=== PATIENT | female | born 1985 | race Hispanic/Latino ===

== ENCOUNTER 2018-04-16 19:16 | Emergency (ER) | payer OTHER, SELFPAY ==
[2018-04-16 21:39] LABS: Absolute Monocytes 0.6 K/uL (0.1-1.3); Absolute Neutrophil 4.4 K/uL (1.8-8.0); Basophils % 0.4 % (0-1.3); Eosinophils % 1.6 % (0-4.4); Hematocrit 37.6 % (36.0-45.0); Lymphocytes % 28.7 % (15.3-44.8); MCH 31.9 pg (27.0-35.0); MCV 92.6 fL (80-100); MPV 9.3 fL (7.6-11.3); Monocytes % 7.9 % (3.3-12.3); RBC Red Blood Cell Count 4.06 M/uL (3.86-4.86)
[2018-04-16 21:42] LABS: Urine Blood 2+ (NEG); Urine Glucose NEGATIVE (NEG); Urine Protein NEGATIVE (NEG); Urine Specific Gravity >1.030 (1.005-1.030)
[2018-04-16 22:44] LABS: BUN Blood Urea Nitrogen 12 mg/dL (7-18); Bicarbonate 26 mmol/L (21-32); Glucose Level 100 mg/dL (74-106); Potassium 3.7 mmol/L (3.5-5.1); Sodium Level 140 mmol/L (136-145)
[2018-04-16 23:03] LABS: HCG, Quantitative 5238 mIU/mL (1-3)
--- NOTE | 2018-04-16 23:19 | RAD REPORT ---
EXAM DESCRIPTION: US - Transvaginal OB - 04/16/2018 10:57 pm CLINICAL HISTORY: VAGINAL BLEEDING COMPARISON: <Comparisons> FINDINGS: The uterus is normal in size and shape. The uterus measures 11.2 x 10.2 x 6.4 cm. No definitive gestational sac or IUP findings are present within the endometrium. A tiny cystic struc ture is seen adjacent to the endometrial stripe but not clearly within it. Both ovaries are normal in size, shape and echotexture with normal Doppler blood flow identified. No pelvic ascites. IMPRESSION: No findings to confirm IUP are seen.In the setting of an elevated HCG level, the finding s would indicate of unknown location. Serial HCG levels and followup pelvic sonography in 7 -10 days would be recommended.
--- NOTE | 2018-04-16 23:30 | EDPHYS ---
Physician Documentation [facility] Name: Qing Alejandro Age: 32 yrs Sex: Female : 1985 Arrival Date: 04/16/2018 Time: 19:24 Bed 15 Private MD: ED Physician Cresencio Mendez HPI: 04/16 20:55 This 32 yrs old Female presents to ER via Ambulatory with complaints of cp Vaginal Bleeding, + Preg <12wks, Abdominal Cramping. 20:55 The patient presents to the emergency department with vaginal bleeding, with clots. cp 20:55 The estimated gestational age is 12 weeks. course: care: at a clinic, Leakage of Fluid: none appreciated, Ultrasound: the patient had an ultrasound. 20:55 Previous pregnancies: in previous pregnancies patient has had vaginal delivery. Patient cp reports she is approximately 12 weeks and became concerned today after passing of large clot. Patient reports she has appt with primary OB at [facility] clinic yesterday in which US did not show IUP. 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 - Social history:: Smoking status: Patient/guardian denies using tobacco. - Ebola Screening: : No symptoms or risks identified at this time. ROS: 21:00 Constitutional: Negative for body aches, chills, fever, poor PO intake. cp 21:00 Eyes: Negative for injury, pain, redness, and discharge. cp 21:00 Cardiovascular: Negative for chest pain, palpitations. cp 21:00 Respiratory: Negative for cough, shortness of breath, wheezing. cp 21:00 Abdomen/GI: Negative for abdominal pain, nausea, vomiting, and diarrhea. 21:00 : Positive for vaginal bleeding, Negative for urinary symptoms. 21:00 All other systems are negative. Exam: 21:08 Constitutional: The patient appears in no acute distress, alert, awake, comfortable, cp non-toxic, well developed, well nourished. 21:08 Head/Face: Normocephalic, atraumatic. cp 21:08 Eyes: Periorbital structures: appear normal, Conjunctiva: normal, no exudate, no injection, Sclera: no appreciated abnormality, Lids and lashes: appear normal, bilaterally. 21:08 ENT: External ear(s): are unremarkable, Nose: is normal, Mouth: Lips: moist, Oral mucosa: moist, Posterior pharynx: is normal, airway is patent. 21:08 Neck: ROM/movement: is normal, is supple, without pain, no range of motions limitations, no nuchal rigidity. 21:08 Chest/axilla: Inspection: normal, Palpation: is normal, no crepitus, no tenderness. 21:08 Cardiovascular: Rate: normal, Rhythm: regular. 21:08 Respiratory: the patient does not display signs of respiratory distress, Respirations: normal, no use of accessory muscles, no retractions, no splinting, no tachypnea, Breath sounds: are clear throughout. 21:08 Abdomen/GI: Inspection: abdomen appears normal, Bowel sounds: active, all quadrants, Palpation: soft, in all quadrants, nontender, in all quadrants, rebound tenderness, is not appreciated, voluntary guarding, is not appreciated, involuntary guarding, is not appreciated. 21:08 Back: pain, is absent, ROM is normal. 21:08 Skin: cellulitis, is not appreciated, no rash present. 21:08 Neuro: Orientation: to person, place \T\ time. Mentation: is normal, Cerebellar function: is grossly normal, Motor: moves all fours, strength is normal, Sensation: is normal. Vital Signs: 19:29 BP 112 / 71; Pulse 74; Resp 14; Temp 97.4(TE); Pulse Ox 99% on R/A; Weight 60.78 kg lk1 (R); Height 5 ft. 3 in. (160.02 cm) (R); Pain 0/10; 22:32 BP 105 / 72; Pulse 90; Resp 18; Pulse Ox 98% on R/A; tl2 04/17 00:12 BP 110 / 65; Pulse 81; Resp 18; Pulse Ox 100% on R/A; tl2 04/16 19:29 Body Mass Index 23.74 (60.78 kg, 160.02 cm) lk1 MDM: 04/16 20:49 Patient medically screened. cp 21:00 Differential diagnosis: STD, ectopic . cp 23:26 ED course: VSS. Patient reports having US this past Friday that showed IUP with FHTs cp wnl. At f/u appt yesterday, repeat US did not show IUP and no FHTs noted. 23:27 Data reviewed: vital signs, nurses notes, lab test result(s), radiologic studies, cp ultrasound, and as a result, I will discharge patient. 04/16 20:55 Order name: Quantitative Hcg; Complete Time: 23:11 04/16 23:11 Interpretation: HCGQ 5238; Reviewed. 04/16 20:55 Order name: Abo/rh Typing; Complete Time: 22:26 04/16 20:55 Order name: Basic Metabolic Panel; Complete Time: 23:11 04/16 20:55 Order name: CBC with Diff; Complete Time: 22:26 04/16 21:40 Order name: Urine Dipstick--Ancillary (enter results); Complete Time: 22:26 [facility] 04/16 21:40 Order name: Urine --Ancillary (enter results); Complete Time: 22:26 [facility] 04/16 20:55 Order name: Urine Test (obtain specimen); Complete Time: 21:58 04/16 20:55 Order name: IV Saline Lock; Complete Time: 21:58 04/16 20:55 Order name: Labs collected and sent; Complete Time: 21:31 04/16 20:55 Order name: NPO; Complete Time: 21:31 04/16 20:55 Order name: Urine Dipstick-Ancillary (obtain specimen); Complete Time: 21:31 04/16 22:27 Order name: US Transvaginal Ob; Complete Time: 23:20 04/16 23:20 Interpretation: Report reviewed. cp Administered Medications: No medications were administered Disposition: 04/17 08:07 Co-signature as Attending Physician, Cresencio Mendez MD I agree with the assessment and wa plan of care. Disposition: 04/16/18 23:29 Discharged to Home. Impression: Threatened . - Condition is Stable. - Discharge Instructions: Medicines During , Threatened Miscarriage, Pelvic Rest. - Prescriptions for Vitamin 27- 0.8 mg Oral Tablet - take 1 tablet by ORAL route once daily; 60 tablet. - Medication Reconciliation Form, Thank You Letter, Antibiotic Education, Prescription Opioid Use form. - Follow up: Private Physician; When: call office for appt and to repeat beta-hcg level in 48 hours; Reason: Recheck today's complaints, Repeat Beta-HCG (48 Hours). - Problem is new. - Symptoms have improved. Signatures: Dispatcher [employer] EDMS Raghav Jj PA PA cp Sharon Barcenas RN RN lk1 Norah Pires RN RN tl2 Cresencio Mendez MD MD id Corrections: (The following items were deleted from the chart) 00:14 04/16 23:29 04/16/2018 23:29 Discharged to Home. Impression: Threatened . tl2 Condition is Stable. Forms are Medication Reconciliation Form, Thank You Letter, Antibiotic Education, Prescription Opioid Use. Follow up: Private Physician; When: call office for appt and to repeat beta-hcg level in 48 hours; Reason: Recheck today's complaints, Repeat Beta-HCG (48 Hours). Problem is new. Symptoms have improved. cp
--- NOTE | 2018-04-16 23:30 | ER ---
Nurse's Notes [facility] Name: Qing Alejandro Age: 32 yrs Sex: Female : 1985 Arrival Date: 04/16/2018 Time: 19:24 Bed 15 Private MD: Diagnosis: Threatened Presentation: 04/16 19:25 Presenting complaint: Patient states: "Today at work, I had a big blood clot come out. lk1 I am scheduled for an ultrasound at 8am in the morning, but the cancelled it. I miscarried 2 years ago. I had an ultrasound yesterday and they couldn't see a baby, but last week they could.". Transition of care: patient was not received from another setting of care. Onset of symptoms was April 16, 2018. Risk Assessment: Do you want to hurt yourself or someone else? Patient reports no desire to harm self or others. Initial Sepsis Screen: Does the patient meet any 2 criteria? No. Patient's initial sepsis screen is negative. Does the patient have a suspected source of infection? No. Patient's initial sepsis screen is negative. Care prior to arrival: None. 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 - Social history:: Smoking status: Patient/guardian denies using tobacco. - Ebola Screening: : No symptoms or risks identified at this time. Screenin/29 00:12 Abuse screen: Denies threats or abuse. Nutritional screening: No deficits noted. tl2 Tuberculosis screening: No symptoms or risk factors identified. Fall Risk None identified. Assessment: 04/16 20:45 General: Appears in no apparent distress. comfortable, Behavior is calm, cooperative, tl2 appropriate for age. Pain: Denies pain. Neuro: Level of Consciousness is awake, alert, obeys commands, Oriented to person, place, time, situation. Cardiovascular: Denies chest pain. Respiratory: Airway is patent Respiratory effort is even, unlabored, Respiratory pattern is regular, symmetrical. GI: No signs and/or symptoms were reported involving the gastrointestinal system. : Reports vaginal bleeding that is bright red, with clots. Derm: Skin is pink, warm \\T\\ dry. 23:00 Reassessment: Patient appears in no apparent distress at this time. Patient and/or tl2 family updated on plan of care and expected duration. Pain level reassessed. Patient is alert, oriented x 3, equal unlabored respirations, skin warm/dry/pink. 04/17 00:12 Reassessment: Patient appears in no apparent distress at this time. Patient and/or tl2 family updated on plan of care and expected duration. Pain level reassessed. Patient is alert, oriented x 3, equal unlabored respirations, skin warm/dry/pink. Pt verbalized understanding of discharge instructions, need for follow up and prescription usage. Vital Signs: 04/16 19:29 BP 112 / 71; Pulse 74; Resp 14; Temp 97.4(TE); Pulse Ox 99% on R/A; Weight 60.78 kg lk1 (R); Height 5 ft. 3 in. (160.02 cm) (R); Pain 0/10; 22:32 BP 105 / 72; Pulse 90; Resp 18; Pulse Ox 98% on R/A; tl2 04/17 00:12 BP 110 / 65; Pulse 81; Resp 18; Pulse Ox 100% on R/A; tl2 04/16 19:29 Body Mass Index 23.74 (60.78 kg, 160.02 cm) lk1 ED Course: 04/16 19:24 Patient arrived in ED. am2 19:28 Triage completed. lk1 19:31 Arm band placed on right wrist. lk1 20:31 Raghav Jj PA is PHCP. cp 20:31 Cresencio Mendez MD is Attending Physician. cp 21:00 Patient has correct armband on for positive identification. Bed in low position. Call tl2 light in reach. Side rails up X 1. 21:00 No provider procedures requiring assistance completed. tl2 21:33 Initial lab(s) drawn, by ga, sent to lab. Urine collected: clean catch specimen. bb 21:59 Inserted saline lock: 22 gauge in right antecubital area, using aseptic technique. tl2 Blood collected. 22:32 Norah Pires, RN is Primary Nurse. tl2 22:39 Patient taken to ultrasound. via wheelchair. lc3 22:57 US Transvaginal Ob In Process Unspecified. EDMS 22:57 Ultrasound completed. Patient tolerated well. Patient moved back from ultrasound. lc3 04/17 00:13 IV discontinued, intact, bleeding controlled, No redness/swelling at site. Pressure tl2 dressing applied. Administered Medications: No medications were administered Outcome: 04/16 23:29 Discharge ordered by MD. cp 04/17 00:13 Discharged to home ambulatory. tl2 Condition: stable Discharge instructions given to patient, Instructed on discharge instructions, follow up and referral plans. medication usage, Demonstrated understanding of instructions, follow-up care, medications, Prescriptions given X 1. 00:14 Patient left the ED. tl2 Signatures: Dispatcher [employer] EDMS Maida Ferrer, RN RN bb Raghav Jj, PA PA cp Deedee Aceves lc3 Sharon Barcenas RN RN lk1 Norah Pires, RN RN tl2 Elisabeth Stroud
== END 2018-04-17 00:14 | disposition home or self-care (01) ==
LOC: ER 19:16
DX: O20.0 Threatened abortion (principal); Z3A.12 12 weeks gestation of pregnancy
CPT/HCPCS: 36415; 76817; 80048; 81003; 81025; 84702; 85025; 86900; 86901; 99284

== ENCOUNTER 2019-09-08 12:26 | Emergency (ER) | payer SELFPAY ==
--- OUTSIDE RECORDS SUMMARY | 2019-09-08 12:28 | XMS REPORT ---
:1985 [facility] Address [address] [place] [address] Dr. Hou [address] [place] [id number] Care Team Providers Name Role Phone Unavailable Unavailable Unavailable Problems This patient has no known problems. Allergies, Adverse Reactions, Alerts This patient has no known allergies or adverse reactions. Medications This patient has no known medications.
--- OUTSIDE RECORDS SUMMARY | 2019-09-08 12:28 | XMS REPORT | Summary of Care ---
:1985 Author Organization [facility] - Health Address [address] [place] [address] Care Team Providers Name Role Phone Syst, Referring/Pcp Prov Not In Insurance Hmo Unavailable [facility] Provider Encounter Details Date Type Department Care Team Description 06/14/2019 Orders Only [facility] Doctor Unassigned, No [address] [facility] [place] [address] [place] [id number] Allergies Active Allergy Reactions Severity Noted Date Comments Adhesive Rash 03/09/2014 Pt allergic to the adhesive on the ortho evra patches. documented as of this encounter (statuses as of 06/14/2019) Medications Medication Sig Dispensed Refills Start Date End Date Status metroNIDAZOLE 500 mg Take 1 tablet by 14 tablet 0 12/02/2018 Active tabletIndications: BV mouth 2 (two) (bacterial vaginosis) times daily. documented as of this encounter (statuses as of 06/14/2019) Active Problems Problem Noted Date Cervical high risk human papillomavirus (HPV) DNA test positive 08/27/2018 Overview: HPV+, Patient informed to RTC in 1 year for repeat pap smear and cotesting. Vaginal itching 08/25/2018 Vaginal discharge 08/25/2018 Encounter for contraceptive management, unspecified type 08/12/2017 Screening examination for STD (sexually transmitted disease) 08/12/2017 Well woman exam 02/05/2016 Depression, unspecified depression type 01/26/2015 documented as of this encounter (statuses as of 06/14/2019) Resolved Problems Problem Noted Date Resolved Date Miscarriage 04/27/2018 04/27/2018 Supervision of high risk , antepartum 03/13/2018 08/25/2018 History of delivery, currently 03/13/2018 08/25/2018 Vaginal bleeding before 22 weeks gestation 03/13/2018 08/25/2018 History of spontaneous , currently 03/13/2018 08/25/2018 Screening for STD (sexually transmitted disease) 08/12/2017 03/13/2018 BMI 22.0-22.9, adult 08/12/2017 03/13/2018 Spontaneous complicated by delayed or excessive 10/11/20162016 hemorrhage Anemia 10/11/2016 08/12/2017 Retained products of conception, early 10/11/2016 08/12/2017 Supervision of high risk , antepartum 09/16/2016 08/12/2017 Multiparity 09/16/2016 08/12/2017 History of miscarriage, currently 09/16/2016 08/12/2017 History of depression 09/16/2016 03/13/2018 Vaginal bleeding in patient at less than 20 weeks 09/16/20162016 gestation Previous delivery affecting , antepartum 08/26/20162016 Overview: Low-transverse uterine incision due to FTP. 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 Utility Nexplanon in place 01/26/2015 02/05/2016 Mood swings 01/26/2015 02/05/2016 Need for Tdap vaccination 12/10/2013 01/26/2015 Missed menses 10/05/2013 12/10/2013 documented as of this encounter (statuses as of 06/14/2019) Immunizations Name Administration Dates Next Due Tdap 02/07/2015 (Deferred: Patient Refused - pt thinks she recieved the vaccine at the ER 2013, will bring proof) documented as of this encounter Social History Tobacco Use Types Packs/Day Years Used Date Never Smoker Smokeless Tobacco: Never Used Alcohol Use Drinks/Week oz/Week Comments Yes 0 Standard drinks or equivalent 0.0 socially prior to Sex Assigned at Date Recorded Not on file Job Start Date Occupation Industry Not on file Not on file Not on file Travel History Travel Start Travel End No recent travel history available. documented as of this encounter Last Filed Vital Signs Not on filedocumented in this encounter Plan of Treatment Date Type Specialty Care Team Description 06/14/2019 Initial Visit OB Satellites Damaris Hart, LISA [address] [place] [address] Health Maintenance Due Date Last Done Comments DTaP,Tdap,and Td Vaccines 2006 (1 - Tdap) INFLUENZA VACCINE (#1) 2019 PAP SMEAR 08/25/2021 08/25/2018, 08/12/2017, 12/10/2013, Additional history exists PNEUMOCOCCAL 0-64 YEARS Aged Out No longer eligible COMBINED SERIES based on patient's age to complete this topic documented as of this encounter Procedures Procedure Name Priority Date/Time Associated Diagnosis Comments ASSIGNMENT OF BENEFITS Routine 06/14/2019 8:02 AM CDT documented in this encounter Results Not on filedocumented in this encounter Insurance Payer Benefit Plan / Subscriber ID Effective Dates Phone Address Type Group [facility] [employer] [employer] [id number] 2018-Marika SAMUEL Agency [employer] [phone] [place] [id number] [place] [address] documented as of this encounter Advance Directives Name Relationship Healthcare Agent Communication Relationship Giuliano Mcgee Relative Primary healthcare agent Caitlin Alejandro Sibling First alternate healthcare [phone] agent (Mobile)
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
--- OUTSIDE RECORDS SUMMARY | 2019-09-08 12:29 | XMS REPORT | Summary of Care ---
:1985 Author Organization [facility] Address [address] [place] [address] Care Team Providers Name Role Phone Syst, Referring/Pcp Prov Not In Insurance Hmo Unavailable Damaris Hart Primary Care Provider Reason for Referral (Routine) Status Reason Specialty Diagnoses / Referred By Referred To Procedures Contact Contact New Request Maternal Diagnoses High-risk in first trimester Damaris Hart FNP Medicine Procedures CONSULT MATERNAL MEDICINE ULTRASOUND Preferred Location: [address] [address] Reason for Visit Reason Comments New OB Visit Encounter Details Date Type Department Care Team Description 06/14/2019 Initial [facility] Damaris Hart FNP High-risk in first trimester (Primary Dx); [facility] Bleeding in early ; [facility] Clin[facility] [place], [place] Urinary tract infection in mother during first trimester of ; [address] [phone] BMI 21.0-21.9, [address], 7[address] floor [phone] [place] [address] Allergies Active Allergy Reactions Severity [...] examination 01/26/2015 07/31/2015 Overview: ICD10 Diagnosis 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 When [...] changes or blurred vision Date Last Reviewed: 07/20/201619995039-7971 [employer]. [address] [place] [address]. All rights reserved. This information is not [...] states she went to an ER in [place] a few weeks ago and was treated [...] N/A 10/11/2016 Surgeon: Brandt Spencer MD; [place] [facility] [place] Social History Socioeconomic History Marital status: [...] file Gets together: Not on file Attends church service: Not on file Active member of [...] environment. Pt states she is now . Christianity preference is Uatsdin. Social History Substance and Sexual Activity Sexual [...] (A1C), CONSULT MATERNAL MEDICINE ULTRASOUND Preferred Location: [place], CBC WITH DIFFERENTIAL, TOTAL BETA HCG ASSAY, [...] documented in this encounter Plan of Treatment Date Type Specialty Care Team Description 06/17/2019 Routine Visit OB Satellites Trimester, [facility] Res-1st Name Type Priority Associated Diagnoses Order Schedule [...] Dates Phone Address Type / Group MEDICAID CHIP PERI PENDING 2019-[address] [place] [address] documented as of this encounter Advance Directives Name Relationship Healthcare Agent Communication Relationship Giuliano Mcgee Relative Primary healthcare agent Caitlin Alejandro Sibling First alternate healthcare [phone] agent (Mobile)
--- OUTSIDE RECORDS SUMMARY | 2019-09-08 12:30 | XMS REPORT | Summary of Care ---
:1985 Author Organization [facility] Address [address] [place] [address] Care Team Providers Name Role Phone Syst, Referring/Pcp Prov Not In Insurance Hmo Unavailable Damaris Hart Primary Care Provider Reason for Referral (Routine) Status Reason Specialty Diagnoses / Referred By Referred To Procedures Contact Contact New Request Maternal Diagnoses High-risk in first trimester Damaris Hart FNP Medicine Procedures CONSULT MATERNAL MEDICINE ULTRASOUND Preferred Location: [address] [address] Reason for Visit Reason Comments New OB Visit Encounter Details Date Type Department Care Team Description 06/14/2019 Initial [facility] Damaris Hart FNP High-risk in first trimester (Primary Dx); [facility] Ble[facility] in early ; [facility] [place], [place] Urinary tract infection in mother during first trimester of ; [address] [phone] BMI 21.0-21.9, adult [address], 7th floor [phone] [place] [address] Allergies Active Allergy Reactions Severity [...] examination 01/26/2015 07/31/2015 Overview: ICD10 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 When [...] changes or blurred vision Date Last Reviewed: 07/20/201619996283-[address] [employer]. [address] [place] [address]. All rights reserved. This information is not [...] states she went to an ER in [place] a few weeks ago and was treated [...] N/A 10/11/2016 Surgeon: Brandt Spencer MD; Location: [facility] Social History Socioeconomic History Marital status: Spouse [...] file Gets together: Not on file Attends anglican service: Not on file Active member of [...] environment. Pt states she is now . Pentecostal preference is Adventism. Social History Substance and Sexual Activity Sexual [...] (A1C), CONSULT MATERNAL MEDICINE ULTRASOUND Preferred Location: [place], CBC WITH DIFFERENTIAL, TOTAL BETA HCG ASSAY, [...] Description 06/17/2019 Routine Visit OB Satellites Trimester, [facility] Res-1st Name Type Priority Associated Diagnoses Order [...] Type / Group MEDICAID [place]IP PERI PENDING 2019-[address] [place] [address] documented as of this encounter Advance Directives Name Relationship Healthcare Agent Communication Relationship Giuliano Mcgee Relative Primary healthcare agent Caitlin Alejandro Sibling First alternate healthcare [phone] agent (Mobile)
--- OUTSIDE RECORDS SUMMARY | 2019-09-08 12:30 | XMS REPORT | Summary of Care ---
:1985 Author Organization [facility] Address [address] [place] [id number] Care Team Providers Name Role Phone Syst, Referring/Pcp Prov Not In Insurance Hmo Unavailable Damaris Hart Primary Care Provider Reason for Visit Reason Comments Vaginal Bleeding Encounter Details Date Type Department Care Team Description 06/17/2019 Routine [facility] Nav Reis MD [address] [place] [address] Vaginal bleeding Visit [facility] Trimester, [facility] Res-1st affecting early [facility] (Primary [address] [place] [address] Allergies Active Allergy Reactions Severity Noted Date Comments Adhesive Rash 03/09/2014 Pt allergic to the adhesive on the ortho evra patches. 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 Surveillance of previously prescribed contraceptive method 01/26/20152015 Overview: ICD10 Diagnosis Term Settlement Technician Utility Nexplanon in place 01/26/2015 02/05/2016 Mood swings 01/26/2015 02/05/2016 Need for Tdap vaccination 12/10/2013 01/26/2015 Missed menses 10/05/2013 12/10/2013 documented as of this encounter (statuses as of 06/17/2019) Immunizations Name Administration Dates Next Due Tdap [...] Sign Reading Time Taken Comments Blood Pressure 110/64 06/17/2019 8:06 AM CDT Pulse 84 06/17/2019 8:06 AM CDT Temperature 36.8 C (98.2 F) 06/17/2019 8:06 AM CDT Respiratory Rate 18 06/17/2019 8:06 AM CDT Oxygen Saturation - - Inhaled Oxygen Concentration - - Weight 54.4 kg (120 lb) 06/17/2019 8:06 AM CDT Height 157.5 cm (5' 2") 06/17/2019 8:06 AM CDT Body Mass Index 21.95 06/17/2019 8:06 AM CDT documented in this encounter Progress Notes Nahomy Au MD - 06/17/2019 8:00 AM CDT Chief complaint: Chief Complaint Patient presents with Vaginal Bleeding HPI Qing Alejandro is a 33 year old female at 5w2d presenting today for vaginal spotting. At [facility] on [facility]19 she complained of vaginal spotting, cramping and UTI symptoms. Beta at that time was 5,166. She was prescribed macrobid 100mg BID for 7 days. Pt reports compliance. Pt endorses cramping and spotting yesterday with passage of a couple small clots. Today she denies VB, cramping, CULLEN, dizziness, CP, SOB. Pt endorses dysuria, frequency, and urgency today. She denies fever/chills and flank pain. Histories OB History Para Term AB Living [...] N/A 10/11/2016 Surgeon: Brandt Spencer MD; Location: [facility] [place] Social History Socioeconomic History [...] file Gets together: Not on file Attends muslim service: Not on file Active member of [...] environment. Pt states she is now . Quaker preference is Confucianism. Social History Substance and Sexual Activity Sexual Activity Yes Partners: Male control/protection: None Labs 06/14/2019 10:10 BETA HCG 5,166.40 Radiology TVUS 06/17/2019 IUP with GS 0.77cm, YS 0.24cm, no FP, no adnexal masses or free fluid. Confirmed withDr. Valentine. Allergies Qing is allergic to adhesive. Medications Qing has a current medication list which includes the following prescription( s): nitrofurantoin&nit. macrocryst and metronidazole. Review of Systems Constitutional: Negative. Negative for chills, diaphoresis and fever. HENT: Negative. Eyes: Negative. Respiratory: Negative. Negative for shortness of breath. Breasts: Negative. Cardiovascular: Negative. Negative for chest pain. Gastrointestinal: Negative. Negative for abdominal pain, nausea and vomiting. Genitourinary: Positive for dysuria, urgency, frequency, vaginal bleeding and pelvic pain. Negative for hematuria and flank pain. Musculoskeletal: Negative. Skin: Negative. Neurological: Negative. Negative for dizziness, light-headedness and headaches. Psychiatric/Behavioral: Negative. Endocrine: Endocrine negative BP 110/64 (BP Location: Right arm, Patient Position: Sitting, BP CUFF SIZE: Adult Medium) | Pulse 84 | Temp 36.8 C (98.2 F) (Oral) | Resp 18 | Ht 5 ' 2" (1.575 m) | Wt 120 lb (54.4 kg) | LMP 05/11/2019 (Exact Date) | BMI 21.95 kg/m Pregravid BMI: 21.6 Physical Exam Vitals reviewed. Constitutional: She appears well-developed and well-nourished. Cardiovascular: Regular rate and rhythm. Pulmonary/Chest: Normal inspiratory effort. Abdominal: Abdomen is soft. Tenderness (Mild suprapubic tenderness) present. Neuro/Psychiatric: She has a normal mood and affect. Skin: Skin normal. Assessment/Plan Vaginal bleeding affecting early (primary encounter diagnosis) - Pt endorses vaginal spotting and cramping for a few days. She passed a couple small clots yesterday, but has not had bleeding today. - Pt denies symptoms of anemia - Beta 06/14/19 was 5,166 - TVUS 06/17/2019 showed IUP at 5w2d with GS 0.77cm, YS 0.24cm, no FP, no adnexal masses or free fluid. Plan: - Pt doing well and denies VB today. - TVUS appropriate for dates, to follow up with M ultrasound for dating - F/u for [facility]NV in 2 weeks - F/u PRN if bleeding starts again/worsens UTI - Pt endorses dysuria, frequency, urgency since 05/23 when she went to [facility] ED for UTI. They gave her cefdinir 300mg and phenazopyridine 200mg at the time. - At [facility] 06/14/19 she still complained of symptoms and was prescribed macrobid 100mg BID, patient reports compliance. - Urine culture on 06/14/19 was contaminated - patient denies fever/chills, nausea/vomiting, SOB, CP - No CVA tenderness, mild suprapubic tenderness on exam Plan: - F/u symptoms at [facility], repeat UA and Ucx at [facility] visit This visit did not involve counseling and coordination that comprised more than 50% of the visit time. Nahomy Au MD 06/17/2019 8:54 AM documented in this encounter Plan of Treatment Date Type Specialty Care Team Description 07/01/2019 Routine Visit OB Satellites Damaris Hart, [address] [address] Name Type Priority Associated Diagnoses Date/Time <14 WEEKS US IMAGING Routine Vaginal bleeding 06/17/2019 8:50 AM LIMITED affecting early CDT Health Maintenance Due Date Last Done Comments DTaP,Tdap,and Td Vaccines 2006 (1 - Tdap) INFLUENZA VACCINE (#1) 2019 PAP SMEAR 08/25/2021 08/25/2018, 08/12/2017, 12/10/2013, Additional history exists PNEUMOCOCCAL 0-64 YEARS Aged Out No longer eligible COMBINED SERIES based on patient's age to complete this topic documented as of this encounter Procedures Procedure Name Priority Date/Time Associated Diagnosis Comments <14 WEEKS US Routine 06/17/2019 8:50 AM Vaginal bleeding LIMITED CDT affecting early Procedure Note - Nahomy Au MD - 06/17/2019 8:51 AM CDT IUP with GS 0.77cm, YS 0.24cm, no FP, no adnexal masses or free fluid. Confirmed with Dr. Valentine. documented in this encounter Results Not on filedocumented in this encounter Visit Diagnoses Diagnosis Vaginal bleeding affecting early - Primary documented in this encounter Insurance Payer Benefit Plan Subscriber ID Effective Dates Phone Address Type / Group MEDICAID [facility] PENDING 2019-[address] P[place] [address] documented as of this encounter Advance Directives Name Relationship Healthcare Agent Communication Relationship Giuliano Mcgee Relative Primary healthcare agent Caitlin Alejandro Sibling First alternate healthcare [phone] agent (Mobile)
--- OUTSIDE RECORDS SUMMARY | 2019-09-08 12:30 | XMS REPORT | Summary of Care ---
:1985 Author Name PHUONG MARSH M.D. Address Unavailable Unavailable , Care Team Providers Name Role Phone SALMA Baird, PHUONG Unavailable Unavailable PHUONG MARSH MD Unavailable Unavailable FLORENCE BERGER MD Unavailable Unavailable Unavailable Unavailable Unavailable Functional Status Name Dates Details Functional status health issues are not documented Status: Name Dates Details Cognitive status health issues are not documented Status: Problems Name Dates Details Active medical history not documented Status: Medications Name Dates Details No Reported Medications Refills: 0 Active Allergies and Adverse Reactions Name Dates Details No Known Drug Allergies (Allergy) Status: Active Past Medical History Name Dates Details History of Cervical high risk HPV (human papillomavirus) test positive (795.05 , R87.810) Status: Resolved Procedures Procedure Dates Details . [facility] - PAP Date: 20-Jul-2019 . [facility] - Affirm VPIII (BV Panel) Date: 20-Jul-2019 History of Section Completed History of Dilation And Curettage Completed Immunization Name Dates Details Immunizations not documented Social History Name Dates Details - Status: Name Dates Details Never smoker Vital Signs Date Test Result Details [id number] BP Systolic 102 mm[Hg] Status: Comments: Location: E; Position: Sitting BP Diastolic 62 mm[Hg] Status: Comments: Location: E; Position: Sitting Height 62 in Status: Weight 123 lb Status: Body Mass Index Calculated 22.5 kg/m2 Status: Body Surface Area Calculated 1.55 m2 Status: Temperature 97.4 f Status: Comments: Method: Oral Heart Rate 79 /min Status: Comments: Location: L Brachial Artery; [id number] BP Systolic 93 mm[Hg] Status: Comments: Location: LUE; Position: Sitting BP Diastolic 59 mm[Hg] Status: Comments: Location: LUE; Position: Sitting Height 62 in Status: Weight 121 lb Status: Body Mass Index Calculated 22.13 kg/m2 Status: Body Surface Area Calculated 1.54 m2 Status: Temperature 97.9 f Status: Comments: Method: Oral Heart Rate 74 /min Status: Comments: Location: L Brachial Artery; Physical Findings 5 Status: Comments: Recently Traveled Internationally? If Yes Where? Results Date Description Value Details [id number] [O] Urine Test (in office) Test, Urine positive (Abnormal) Plan of Care Name Dates Details Planned Observations Planned Goals not documented Planned Encounters Appointment; PHUONG MARSH M.D. On: 17-Aug-2019 10:00 Interventions Provided Labs/Procedures/Imaging. [facility] - Affirm VPIII (BV Panel); To Be Done: 20 Jul 2019. [facility] - PAP; To Be Done: 20 Jul 2019Discussion/[id number] P2 10 wks gestation1) Urine dip negative2) VSS, AF3) Pap and cultures taken4) Waiting for LU of records of bloodwork.5) RTC in 4 weeks. Instructions Name Dates Details Instructions not documented Encounters Appointment; PHUONG MARSH M.D. On: 29-Jun-2019 15:00 Encounter Diagnosis: Problem not documented Appointment; PHUONG MARSH M.D. On: 20-Jul-2019 15:00 Encounter Diagnosis: Problem not documented
--- OUTSIDE RECORDS SUMMARY | 2019-09-08 12:30 | XMS REPORT | Summary of Care ---
:1985 Author Organization [address] [address] Care Team Providers Name Role Phone Syst, Referring/Pcp Prov Not In Insurance Hmo Unavailable Damaris Hart Primary Care Provider Reason for Visit Reason Comments Rx Concern/Question Encounter Details Date Type Department Care Team Description 06/15/2019 Telephone [facility] Damaris Hart FNP Rx Concern/Question [address], [address] [place] [address] [place] [address] Allergies Active Allergy Reactions Severity Noted Date Comments Adhesive Rash 03/09/2014 Pt allergic to the adhesive on the ortho evra patches. 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 Surveillance of previously prescribed contraceptive method 01/26/20152015 Overview: ICD10 Diagnosis Term Manufacturing Maintenance Technician Utility Nexplanon in place 01/26/2015 02/05/2016 Mood swings 01/26/2015 02/05/2016 Need for Tdap vaccination 12/10/2013 01/26/2015 Missed menses 10/05/2013 12/10/2013 documented as of this encounter (statuses as of 06/15/2019) Immunizations Name Administration Dates Next Due Tdap [...] Description 06/17/2019 Routine Visit OB Satellites Trimester, [facility] Res-1st Health Maintenance Due Date Last Done Comments [...] Payer Benefit Plan / Subscriber ID Effective Phone Address Type Group Dates MEDICAID [employer] PENDING 2019-Pres [address] [place] [address] Pending PENDING PENDING RAS [place] [phone] [facility] FAMILY FAMILY [id number] 2018-Pres Sara SAMUEL [id number] Agency [employer] RAS Rangel [phone] documented as of this encounter Advance Directives Name Relationship Healthcare Agent Communication Relationship Giuliano Mcgee Relative Primary healthcare agent Caitlin Alejandro Sibling First alternate healthcare [phone] agent (Mobile)
--- NOTE | 2019-09-08 15:14 | EDPHYS ---
Physician Documentation [facility] Name: Qing Reis Age: 33 yrs Sex: Female : 1985 Arrival Date: 09/08/2019 Time: 12:29 Bed 28 Private MD: ED Physician Brayan Wagoner HPI: 09/08 13:59 This 33 yrs old Female presents to ER via Ambulatory with complaints of ma2 Dizziness, Fall Injury. 13:59 The patient presents with dizziness, feeling faint. Onset: The symptoms/episode ma2 began/occurred suddenly, 1 hour(s) ago. Associated signs and symptoms: Pertinent negatives: ataxia, chest pain, confusion, focal weakness, headache, near-syncope, palpitations, shortness of breath, tingling. Severity of symptoms: At their worst the symptoms were very mild in the emergency department the symptoms have resolved. The patient has experienced similar episodes in the past. 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 - Immunization history: Last tetanus immunization: - up to date. - Social history:: Smoking status: Patient/guardian denies using tobacco, Patient/guardian denies using alcohol, street drugs, The patient lives with family. - Ebola Screening: : Patient denies travel to an Ebola-affected area in the 21 days before illness onset. - Family history:: not pertinent. - Hospitalizations: : No recent hospitalization is reported. ROS: 13:59 Constitutional: Negative for fever, chills, and weight loss, Cardiovascular: Negative ma2 for chest pain, palpitations, and edema, Respiratory: Negative for shortness of breath, cough, wheezing, and pleuritic chest pain, Abdomen/GI: Negative for abdominal pain, nausea, diarrhea, and constipation, MS/Extremity: Negative for injury and deformity, Skin: Negative for injury, rash, and discoloration. 13:59 All other systems are negative. Exam: 13:59 Constitutional: This is a well developed, well nourished patient who is awake, alert, ma2 and in no acute distress. ENT: Nares patent. No nasal discharge, no septal abnormalities noted. Tympanic membranes are normal and external auditory canals are clear. Oropharynx with no redness, swelling, or masses, exudates, or evidence of obstruction, uvula midline. Mucous membranes moist. Neck: Trachea midline, no thyromegaly or masses palpated, and no cervical lymphadenopathy. Supple, full range of motion without nuchal rigidity, or vertebral point tenderness. No Meningismus. Chest/axilla: Normal chest wall appearance and motion. Nontender with no deformity. No lesions are appreciated. Cardiovascular: Regular rate and rhythm with a normal S1 and S2. No gallops, murmurs, or rubs. Normal PMI, no JVD. No pulse deficits. Respiratory: Lungs have equal breath sounds bilaterally, clear to auscultation and percussion. No rales, rhonchi or wheezes noted. No increased work of breathing, no retractions or nasal flaring. Abdomen/GI: Soft, non-tender, with normal bowel sounds. No distension or tympany. No guarding or rebound. No evidence of tenderness throughout. Female : Normal external genitalia. MS/ Extremity: Pulses equal, no cyanosis. Neurovascular intact. Full, normal range of motion. Neuro: Awake and alert, GCS 15, oriented to person, place, time, and situation. Cranial nerves II-XII grossly intact. Motor strength 5/5 in all extremities. Sensory grossly intact. Cerebellar exam normal. Normal gait. Vital Signs: 13:09 BP 127 / 68; Pulse 91; Resp 18; Temp 97.9; Pulse Ox 100% on R/A; Weight 55.79 kg (R); aj1 Height 5 ft. 3 in. (160.02 cm) (R); Pain 0/10; 13:46 BP 103 / 68; Pulse 79; Resp 18 S; Pulse Ox 100% on R/A; Pain 0/10; jp3 15:30 BP 103 / 65; Pulse 81; Resp 18; Pulse Ox 100% on R/A; rv 13:09 Body Mass Index 21.79 (55.79 kg, 160.02 cm) aj1 Marcelle Coma Score: 13:09 Eye Response: spontaneous(4). Verbal Response: oriented(5). Motor Response: obeys aj1 commands(6). Total: 15. Trauma Score (Adult): 13:09 Eye Response: spontaneous(1); Verbal Response: oriented(1); Motor Response: obeys aj1 commands(2); Systolic BP: > 89 mm Hg(4); Respiratory Rate: 10 to 29 per min(4); Orem Score: 15; Trauma Score: 12 MDM: 13:54 Patient medically screened. [facility] 13:59 Differential diagnosis: cardiac arrhythmia, hyperventilation, hypovolemia, vertigo. [facility] 15:12 Data reviewed: vital signs, nurses notes. Counseling: I had a detailed discussion with ma the patient and/or guardian regarding: the historical points, exam findings, and any diagnostic results supporting the discharge/admit diagnosis, the presence of at least one elevated blood pressure reading (>120/80) during this emergency department visit, the need for outpatient follow up. Response to treatment: There is no appreciated change of the patient's symptoms at this time. 09/08 15:20 Order name: Urine Dipstick--Ancillary (enter results) 09/08 15:20 Order name: Urine --Ancillary (enter results) 09/08 13:59 Order name: Urine Dipstick-Ancillary (obtain specimen); Complete Time: 15:07 [facility] 09/08 14:01 Order name: EKG - Nurse/Tech; Complete Time: 14:34 [facility] 09/08 15:16 Order name: EKG Electrocardiogram; Complete Time: 15:18 EDMS Administered Medications: No medications were administered Disposition: 09/08/19 15:13 Discharged to Home. Impression: Palpitations. - Condition is Stable. - Discharge Instructions: Palpitations. - Medication Reconciliation Form, Thank You Letter, Antibiotic Education, Prescription Opioid Use form. - Follow up: Private Physician; When: Tomorrow; Reason: Continuance of care. Signatures: Dispatcher [employer] EDMS Renetta Tenorio RN RN aj1 Brayan Wagoner MD MD ma2 Tigre Amaya RN RN rv Corrections: (The following items were deleted from the chart) 15:48 15:13 09/08/2019 15:13 Discharged to Home. Impression: Palpitations. Condition is rv Stable. Forms are Medication Reconciliation Form, Thank You Letter, Antibiotic Education, Prescription Opioid Use. Follow up: Private Physician; When: Tomorrow; Reason: Continuance of care. ma2
--- NOTE | 2019-09-08 15:14 | ER ---
Nurse's Notes [facility] Name: Qing Reis Age: 33 yrs Sex: Female : 1985 Arrival Date: 09/08/2019 Time: 12:29 Bed 28 Private MD: Diagnosis: Palpitations Presentation: 09/08 13:09 Presenting complaint: Patient states: "I was in the shower and I started to get really aj1 dizzy and then I fell in the tub" Denies hitting head, denies LOC. Denies pain. Reports that her dizziness has resolved. Patient reports that she is currently 17 weeks . Denies back pain, abdominal pain, or vaginal bleeding. Care prior to arrival: None. Mechanism of Injury: Fall from standing position. Trauma event details: Injury occurred in the [facility]. 13:09 Acuity: CARLY 3 aj1 13:09 Method Of Arrival: Ambulatory aj1 13:12 Transition of care: patient was not received from another setting of care. Onset of aj1 symptoms was September 08, 2019. Risk Assessment: Do you want to hurt yourself or someone else? Patient reports no desire to harm self or others. Initial Sepsis Screen: Does the patient meet any 2 criteria? No. Patient's initial sepsis screen is negative. Does the patient have a suspected source of infection? No. Patient's initial sepsis screen is negative. 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 - Immunization history: Last tetanus immunization: - up to date. - Social history:: Smoking status: Patient/guardian denies using tobacco, Patient/guardian denies using alcohol, street drugs, The patient lives with family. - Ebola Screening: : Patient denies travel to an Ebola-affected area in the 21 days before illness onset. - Family history:: not pertinent. - Hospitalizations: : No recent hospitalization is reported. Screenin:09 Abuse screen: Denies threats or abuse. Denies injuries from another. Tuberculosis aj1 screening: No symptoms or risk factors identified. 14:11 Nutritional screening: No deficits noted. Fall Risk None identified. No fall in past 12 rv months (0 pts). No secondary diagnosis (0 pts). No IV (0 pts). Ambulatory Aid- None/Bed Rest/Nurse Assist (0 pts). Gait- Normal/Bed Rest/Wheelchair (0 pts) Mental Status- Oriented to own ability (0 pts). Total [place] Fall Scale indicates No Risk (0-24 pts). Primary Survey: 13:09 NO uncontrolled hemorrhage observed. A: The patient is alert. Breathing/Chest: aj1 Respiratory pattern: regular, Respiratory effort: spontaneous, unlabored. Circulation: Skin color: pink. Disability Alert. Assessment: 13:09 General: Appears in no apparent distress. comfortable, Behavior is calm, cooperative, aj1 appropriate for age. Pain: Denies pain. Neuro: Level of Consciousness is awake, alert, obeys commands. Cardiovascular: Patient's skin is warm and dry. Respiratory: Airway is patent Respiratory effort is even, unlabored, Respiratory pattern is regular, symmetrical. 14:10 General: Appears in no apparent distress. comfortable, Behavior is calm, cooperative. rv Pain: Denies pain. Neuro: Level of Consciousness is awake, alert, obeys commands, Oriented to person, place, time, situation. Cardiovascular: Patient's skin is warm and dry. Respiratory: Airway is patent. GI: No signs and/or symptoms were reported involving the gastrointestinal system. : No signs and/or symptoms were reported regarding the genitourinary system. EENT: No signs and/or symptoms were reported regarding the EENT system. Derm: Skin is intact. Musculoskeletal: No signs and/or symptoms reported regarding the musculoskeletal system. Vital Signs: 13:09 BP 127 / 68; Pulse 91; Resp 18; Temp 97.9; Pulse Ox 100% on R/A; Weight 55.79 kg (R); aj1 Height 5 ft. 3 in. (160.02 cm) (R); Pain 0/10; 13:46 BP 103 / 68; Pulse 79; Resp 18 S; Pulse Ox 100% on R/A; Pain 0/10; jp3 15:30 BP 103 / 65; Pulse 81; Resp 18; Pulse Ox 100% on R/A; rv 13:09 Body Mass Index 21.79 (55.79 kg, 160.02 cm) aj1 Vitals: 14:10 Heart Tones 160s. rv Marcelle Coma Score: 13:09 Eye Response: spontaneous(4). Verbal Response: oriented(5). Motor Response: obeys aj1 commands(6). Total: 15. Trauma Score (Adult): 13:09 Eye Response: spontaneous(1); Verbal Response: oriented(1); Motor Response: obeys aj1 commands(2); Systolic BP: > 89 mm Hg(4); Respiratory Rate: 10 to 29 per min(4); Marcelle Score: 15; Trauma Score: 12 ED Course: 12:29 Patient arrived in ED. as 13:09 Patient has correct armband on for positive identification. aj1 13:09 Patient maintains SpO2 saturation greater than 95% on room air. aj1 13:11 Triage completed. aj1 13:13 Arm band placed on Patient placed in waiting room, Patient notified of wait time. aj1 13:38 Tigre Amaya, RN is Primary Nurse. rv 13:46 Bed in low position. Call light in reach. Verbal reassurance given. Pulse ox on. NIBP jp3 on. 13:54 Brayan Wagoner MD is Attending Physician. ma2 14:11 Thermoregulation: warm blanket given to patient. rv 14:34 EKG done, by flight test data acquisition technician. reviewed by Brayan Wagoner MD. at1 15:47 No provider procedures requiring assistance completed. Patient did not have IV access rv during this emergency room visit. Administered Medications: No medications were administered Outcome: 15:13 Discharge ordered by . ma2 15:47 Discharged to home ambulatory. rv 15:47 Condition: good 15:47 Discharge instructions given to patient, Instructed on discharge instructions, follow up and referral plans. Demonstrated understanding of instructions, follow-up care. 15:48 Patient left the ED. rv Signatures: Renetta Tenorio, RN RN aj1 Zaria Zavaleta Amanda, clinical laboratory aides teacher EKG Tat1 Brayan Wagoner MD MD ma2 Tigre Amaya, LILA RN rv Lamberto Cameron jp3
[2019-09-08 15:44] LABS: Urine Blood NEGATIVE (NEG); Urine Glucose NEGATIVE (NEG); Urine Protein NEGATIVE (NEG)
[2019-09-08 16:14] VITALS: TEMP 97.9; O2SAT 100
[2019-09-08 16:17] VITALS: BP 103/65
--- NOTE | 2019-09-08 18:34 | EKG ---
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
== END 2019-09-08 15:48 | disposition home or self-care (01) ==
LOC: ER 12:26
DX: O26.892 Other specified pregnancy related conditions, second trimester (principal); W18.2XXA Fall in (into) shower or empty bathtub, initial encounter; Y93.E1 Activity, personal bathing and showering; Y92.89 Other specified places as the place of occurrence of the external cause; Z3A.17 17 weeks gestation of pregnancy
CPT/HCPCS: 81003; 81025; 93005; 99284

== ENCOUNTER 2022-09-04 18:31 | Emergency (ER) | payer OTHER, SELFPAY ==
--- OUTSIDE RECORDS SUMMARY | 2022-09-04 18:35 | XMS REPORT | Continuity of Care Document ---
:1985 Author Organization [facility] t Address [facility] [place] [address] Care Team Providers Name Role Phone Pcp, Patient Does Not Have A Primary Care Physician [id number] NICHOLE ALBRECHT Attending Clinician Unavailable Nihcole Soni Attending Clinician RAMON DAILEY Attending Clinician Unavailable Ramon Cyr Attending Clinician Doctor Unassigned, [place] Attending Clinician Unavailable PILAR MCCRARY Attending Clinician Unavailable BULMARO TORRES Attending Clinician Unavailable RONNA CHILDRESS Attending Clinician Unavailable Bulmaro Torres DO Attending Clinician Pilar Hernandez Attending Clinician PHUONG MARSH M.D. Attending Clinician Unavailable [facility] Attending Clinician Unavailable Nav Reis MD Attending Clinician Damaris Gonzales Attending Clinician RAMON DAILEY Admitting Clinician Unavailable Payers Payer Name Policy Type Policy Number Effective Date Expiration Date Charlette BRIDGES II [id number] 2020 00:00:00 Problems Condition Condition Condition Status Onset Resolution Last Treating Co mments Source Name Details Category Date Date Treatment Clinician Date Cervical Cervical Disease Active 2017-10 Overview: Un dao high risk high risk 1-08 Formattin i ty of human human 00:00: g of this [place] papillomav papillomav 00 note Me dical irus (HPV) irus (HPV) might be Branch DNA test DNA test different positive positive from the original. HPV+, Patient informed to RTC in 1 year for repeat pap smear and cotesting . Vaginal Vaginal Disease Active 2017-10 Univers itching itching 10-25 ity of 00:00: [place] [facility] Vaginal Vaginal Disease Active 2017-10 Univers discharge discharge 06 ity of 00:00: [address] Encounter Encounter Disease Active 2016-10 Uni vers for for 0-24 [place]y of [place]pt [place] man[place] manfred 00 Medical management management Br anch , , unspecifie unspecifie d type d type Screening Screening Disease Active 2016-10 Uni vers examinatio examinatio 0-24 it y of n for STD n for STD 00:00: Mat s (sexually (sexually 00 Medi silvia transmitte transmitte Br anch d disease) d disease) Well woman Well woman Disease Active U nivers exam exam 4-18 ity of 00:00: [place] [facility] Well woman Well woman Disease Active U nivers exam exam 4-18 ity of 00:00: [facility] Depression Depression Disease Active U nivers , , 4-09 ity of unspecifie [place]specifie [place] 00 Medical depression depression Br anch type type Allergies, Adverse Reactions, Alerts Allergy Allergy Status Severity Reaction(s) Onset Inactive Treating Comm ents Source Name Type Date Date Clinician ADHESIVE Drug Active Rash Univers Class 5-21 ity of 00:00: [place] [facility] Adhesive Propensi Active Rash Pt Univer s ty to 5-21 allergic ity of adverse 00:00: to the [place] reaction 00 adhesive Medica l s on the Branch ortho evra patches. Adhesive Propensi Active Rash Pt Univer s ty to 5-21 allergic ity of adverse 00:00: to the [place] reaction 00 adhesive Medica l s on the Branch ortho evra patches. Social History Social Habit Start Date Stop Date Quantity Comments Source ASSERTION 2019-05-25 University of 00:00:00 [place] [facility] History SDOH University o f Alcohol Frequency [place] M edical [facility] History [facility] o f Alcohol Std [place] Medical Drinks Branch History [facility] o f Alcohol Binge [place] Medic al Branch Exposure to 2022-04-19 2022-04-29 Not sure University SARS-CoV-2 00:00:00 20:20:00 [facility] (event) Branch Alcohol intake 2022-04-29 2022-04-29 0 /d University of 00:00:00 00:00:00 [facility] Alcohol Comment 2018-03-13 2018-03-13 socially prior to Un iversity of 00:00:00 00:00:00 [facility] Tobacco use and 2014-03-09 2014-03-09 Smokeless tobacco Un iversity of exposure 00:00:00 00:00:00 non-user [facility] Sex Assigned At [birth year] Universit y of 00:00:00 00:00:00 [facility] Smoking Status Start Date Stop Date Source Never smoked tobacco [facility] Medications Ordered Filled Start Stop Current Ordering Indication Dosage Frequency Signature Comments Components Source Medication Medication Date Date Medication? Clinician (SIG) Name Name fluconazole No 150mg 150 mg, U nivers (DIFLUCAN) 04-3012 Oral, ONCE it y of tablet 150 03:45: 02:37 NOW, 1 [place] mg 00 :00 dose, On Medical Mon Branch 04/29/22 at 2245, DONNA
Re ason for Anti-Infec tive: Documented Infection< br>Documen rudy Infection Site: Skin / Soft Tissue
Duration of Therapy: Other (see Comments) fluconazole Yes [id number] Take 1 Univers 150 mg 7-11 tablet on ity of tablet 00:00: 05/02/[address] NaCl 0.9% 2020-10 No 1000mL at 999 Uni vers (NS) bolus 1-25 11-25 mL/hr, ity of infusion 03:00: 03:08 1,000 mL, Ruddy as 1,000 mL 00 :00 IV Medical Infusion, Branch ONCE, 1 dose, On Fri09/12/21 at 2100, DONNA ketorolac 2020-10- No 30mg 30 mg, Unive rs (TORADOL) 11-13 Slow IV ity of injection 01:45: 02:09 Push, [place] 30 mg 00 :00 ONCE, 1 Medical dose, On Branch Fri09/12/21 at 1945, Routine
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 ondansetron 2020-10 Yes [id number] 4mg Take 1 Univers 4 mg 1-24 tablet by ity of disintegrat 00:00: mouth [place] ing tablet 00 every 8 Medica l (eight) Branch hours as needed for Nausea and Vomiting (N/V). Nitrofurant 2018- No [id number] 100mg Take 1 Univers oin&Nit. 06-14 capsule by ity of [place] 00:00: 04:59 mouth 2 [place]dy as 100 mg 00 :00 (two) Medical capsule times Branch daily for 7 days. Nitrofurant 2018- No [id number] 100mg Take 1 Univers oin&Nit. 06-14 capsule by ity of [place] 00:00: 04:59 mouth 2 Ruddy as 100 mg 00 :00 (two) Medical capsule times Branch daily for 7 days. Nitrofurant 2019- No [id number] 100mg Take 1 Univers oin&Nit. 06-14 capsule by ity of [place] 00:00: 04:59 mouth 2 Ruddy as 100 mg 00 :00 (two) Medical capsule times Branch daily for 7 days. Nitrofurant 2019- No [id number] 100mg Take 1 Univers oin&Nit. 06-14 capsule by ity of [place] 00:00: 04:59 mouth 2 Ruddy as 100 mg 00 :00 (two) Medical capsule times Branch daily for 7 days. Nitrofurant 2019- No [id number] 100mg Take 1 Univers oin&Nit. 06-14 capsule by ity of [place] 00:00: 04:59 mouth 2 Ruddy as 100 mg 00 :00 (two) Medical capsule times Branch daily for 7 days. metroNIDAZO Yes [id number] 500mg Take 1 Univers LE 500 mg 2-13 tablet by ity o f tablet 00:00: mouth 2 (two) Medical times Branch daily. metroNIDAZO Yes [id number] 500mg Take 1 Univers LE 500 mg 2-13 tablet by ity o f tablet 00:00: mouth 2 00 (two) Medical times Branch daily. metroNIDAZO Yes [id number] 500mg Take 1 Univers LE 500 mg 2-13 tablet by ity o f tablet 00:00: mouth 2 00 (two) Medical times Branch daily. metroNIDAZO Yes [id number] 500mg Take 1 Univers LE 500 mg 2-13 tablet by ity o f tablet 00:00: mouth 2 (two) Medical times Branch daily. metroNIDAZO Yes [id number] 500mg Take 1 Univers LE 500 mg 2-13 tablet by ity o f tablet 00:00: mouth (two) Medical times Branch daily. metroNIDAZO Yes [id number] 500mg Take 1 Univers LE 500 mg 2-13 tablet by ity o f tablet 00:00: mouth (two) Medical times Branch daily. metroNIDAZO Yes [id number] 500mg Take 1 Univers LE 500 mg 2-13 tablet by ity o f tablet 00:00: mouth (two) Medical times Branch daily. metroNIDAZO Yes [id number] 500mg Take 1 Univers LE 500 mg 2-13 tablet by ity o f tablet 00:00: mouth 2 (two) Medical times Branch daily. metroNIDAZO Yes [id number] 500mg Take 1 Univers LE 500 mg 2-13 tablet by ity o f tablet 00:00: mouth 2 (two) Medical times Branch daily. metroNIDAZO 0 Yes [id number] 500mg Take 1 Univers LE 500 mg 2-13 tablet by ity o f tablet 00:00: mouth 2 00 (two) Medical times Branch daily. metroNIDAZO 2018- Yes [id number] 500mg Take 1 Univers LE 500 mg 2-13 tablet by ity o f tablet 00:00: mouth 2 00 (two) Medical times Branch daily. metroNIDAZO Yes [id number] 500mg Take 1 Univers LE 500 mg 2-13 tablet by ity o f tablet 00:00: mouth 2 00 (two) Medical times Branch daily. metroNIDAZO Yes [id number] 500mg Take 1 Univers LE 500 mg 2-13 tablet by ity o f tablet 00:00: mouth 2 00 (two) Medical times Branch daily. metroNIDAZO Yes [id number] 500mg Take 1 Univers LE 500 mg 2-13 tablet by ity o f tablet 00:00: mouth 2 00 (two) Medical times Branch daily. metroNIDAZO Yes [id number] 500mg Take 1 Univers LE 500 mg 2-13 tablet by ity o f tablet 00:00: mouth 2 00 (two) Medical times Branch daily. metroNIDAZO Yes [id number] 500mg Take 1 Univers LE 500 mg 2-13 tablet by ity o f tablet 00:00: mouth 2 (two) Medical times Branch daily. Immunizations Ordered Filled Immunization Date Status Comments [facility] e Immunization Name Name SARS-COV-2 COVID-19 2021-02-24 Completed Unive rsity of PFIZER VACCINE 00:00:00 [facility] SARS-COV-2 COVID-19 2021-02-24 Completed Unive rsity of PFIZER VACCINE 00:00:00 [facility] SARS-COV-2 COVID-19 2021-02-24 Completed Unive rsity of PFIZER VACCINE 00:00:00 [facility] SARS-COV-2 COVID-19 2021-01-27 Completed Unive rsity of PFIZER VACCINE 00:00:00 [facility] SARS-COV-2 COVID-19 2021-01-27 Completed Unive rsity of PFIZER VACCINE 00:00:00 [facility] SARS-COV-2 COVID-19 2021-01-27 Completed Unive rsity of PFIZER VACCINE 00:00:00 [facility] Vital Signs Vital Name Observation Time Observation Value Comments Source Heart rate 2022-04-30 65 /min [facility] 02:00:00 [facility] Respiratory rate 2022-04-30 16 /min [facility] 02:00:00 [facility] Oxygen saturation 2022-04-30 99 /min University of in Arterial blood 02:00:00 [facility] by Pulse oximetry Branch Systolic blood 2022-04-30 99 mm[Hg] University of pressure 01:23:00 [facility] Branch Diastolic blood 2022-04-30 65 mm[Hg] University o f pressure 01:23:00 [facility] Body temperature 2022-04-30 36.83 [place] University of 01:23:00 [facility] Body height 2022-04-30 160 cm University of 01:23:00 [facility] Body weight 2022-04-30 52.617 kg University of 01:23:00 [facility] BMI 2022-04-30 20.55 kg/m2 University of 01:23:00 [facility] Systolic blood 2021-09-13 106 mm[Hg] University of pressure 03:05:00 [facility] Diastolic blood 2021-09-13 61 mm[Hg] University o f pressure 03:05:00 [facility] Heart rate 2021-09-13 63 /min University of 03:05:00 [facility] Respiratory rate 2021-09-13 16 /min University of 03:05:00 [facility] Oxygen saturation 2021-09-13 99 /min [facility] in Arterial blood 03:05:00 [facility] by Pulse oximetry Branch Body temperature 2021-09-13 36.83 [place] University of 00:23:00 [facility] Body height 2021-09-13 160 cm University of 00:23:00 [facility] Body weight 2021-09-13 61.689 kg University of 00:23:00 [facility] BMI 2021-09-13 24.09 kg/m2 University of 00:23:00 [facility] Systolic blood 2020-12-14 94 mm[Hg] University of pressure 14:44:00 [facility] Diastolic blood 2020-12-14 59 mm[Hg] University o f pressure 14:44:00 [facility] Heart rate 2020-12-14 77 /min University of 14:44:00 [facility] Body temperature 2020-12-14 36.33 [place] University of 14:44:00 [facility] Respiratory rate 2020-12-14 18 /min University of 14:44:00 [facility] Body height 2020-12-14 160 cm University of 14:44:00 [facility] Body weight 2020-12-14 61.871 kg University of 14:44:00 [facility] BMI 2020-12-14 24.16 kg/m2 University of 14:44:00 [facility] Systolic blood 2020-11-07 100 mm[Hg] University of pressure 16:48:00 [facility] Branch Diastolic blood 2020-11-07 59 mm[Hg] University o f pressure 16:48:00 [facility] Heart rate 2020-11-07 64 /min University of 16:48:00 [facility] Body temperature 2020-11-07 36.56 [place] University of 16:48:00 [facility] Branch Respiratory rate 2020-11-07 19 /min University of 16:48:00 [facility] Body height 2020-11-07 160 cm University of 16:48:00 [facility] Body weight 2020-11-07 60.963 kg University of 16:48:00 [facility] BMI 2020-11-07 23.81 kg/m2 University of 16:48:00 [facility] Systolic blood 2019-06-17 110 mm[Hg] University of pressure 13:06:00 [facility] Branch Diastolic blood 2019-06-17 64 mm[Hg] University o f pressure 13:06:00 [facility] Heart rate 2019-06-17 84 /min University of 13:06:00 [facility] Body temperature 2019-06-17 36.78 [place] University of 13:06:00 [facility] Respiratory rate 2019-06-17 18 /min University of 13:06:00 [facility] Body height 2019-06-17 157.5 cm University of 13:06:00 [facility] Body weight 2019-06-17 54.432 kg University of 13:06:00 [facility] BMI 2019-06-17 21.95 kg/m2 University of 13:06:00 [facility] Systolic blood 2019-06-14 102 mm[Hg] University of pressure 13:59:00 [place] [facility] Diastolic blood 2019-06-14 62 mm[Hg] University o f pressure 13:59:00 [place] [facility] Branch Heart rate 2019-06-14 86 /min University of 13:59:00 [facility] Body temperature 2019-06-14 36.89 [place] University of 13:59:00 [facility] Branch Respiratory rate 2019-06-14 17 /min University of 13:59:00 [facility] Body height 2019-06-14 157.5 cm [facility] 13:59:00 [facility] Body weight 2019-06-14 53.57 kg University 13:59:00 [facility] BMI 2019-06-14 21.60 kg/m2 [facility] 13:59:00 [facility] BP Systolic 2019-08-06 90 mm[Hg] Location: LUE; [facility] 09:09:00 Position: Sitting BP Diastolic 2019-08-06 56 mm[Hg] Location: LUE; [facility] 09:09:00 Position: Sitting Height 2019-08-06 62 [in_us] [facility] 09:09:00 Weight 2019-08-06 124 [lb_av] [facility] 09:09:00 Body Mass Index 2019-08-06 22.68 kg/m2 [facility] 09:09:00 Temperature 2019-08-06 97.5 [degF] Method: [facility] 09:09:00 Tympanic Heart Rate 2019-08-06 55 /min [facility] 09:09:00 BP Systolic 2019-07-20 102 mm[Hg] Location: LUE; [facility] 15:13:00 Position: Sitting BP Diastolic 2019-07-20 62 mm[Hg] Location: LUE; [facility] 15:13:00 Position: Sitting Height 2019-07-20 62 [in_us] [facility] 15:13:00 Weight 2019-07-20 123 [lb_av] [facility] 15:13:00 Body Mass Index 2019-07-20 22.5 kg/m2 [facility] Cal[facility] 15:13:00 Temperature 2019-07-20 97.4 [degF] Method: Oral [facility] 15:13:00 Heart Rate 2019-07-20 79 /min Location: L [facility] 15:13:00 Brachial Artery; BP Systolic 2019-06-29 93 mm[Hg] Location: RENEE; [facility] 15:30:00 Position: Sitting BP Diastolic 2019-06-29 59 mm[Hg] Location: RENEE; [facility] 15:30:00 Position: Sitting Height 2019-06-29 62 [in_us] [facility] 15:30:00 Weight 2019-06-29 121 [lb_av] [facility] 15:30:00 Body Mass Index 2019-06-29 22.13 kg/m2 [facility] Calculated 15:30:00 Temperature 2019-06-29 97.9 [degF] Method: Oral [facility] 15:30:00 Heart Rate 2019-06-29 74 /min Location: L [facility] 15:30:00 Brachial Artery; Procedures Procedure Date / Time Performed Performing Clinician Sour e URINALYSIS 2022-04-30 01:39:00 Nichole Albrecht [facility] POCT TEST 2022-04-30 01:38:00 Nichole Albrecht [facility] CONSENT/REFUSAL FOR 2022-04-30 01:20:04 Doctor Unassigned, No [facility] DIAGNOSIS AND Name Medical Branch TREATMENT XR ABDOMEN ACUTE 2021-09-13 01:38:58 Ramon Dailey [facility] SERIES Medical Branch LIPASE 2021-09-13 01:18:00 Ramon Dailey [facility] COMP. METABOLIC PANEL 2021-09-13 01:18:00 Ramon Dailey [facility] ([id number]) [facility] CBC WITH DIFF 2021-09-13 01:18:00 Ramon Dailey [facility] URINALYSIS 2021-09-13 01:18:00 Ramon Dailey [facility] RAPID STREP SCREEN FOR 2021-09-13 01:18:00 Ramon Dailey [facility] Medical Branch COVID-19 (ID NOW RAPID 2021-09-13 01:18:00 Ramon Dailey [facility] TESTING) Medical Branch POCT TEST 2021-09-13 01:10:00 Ramon Dailey [facility] NOTICE OF PRIVACY 2021-09-13 00:10:47 Doctor Unassigned, No [facility] PRACTICES Name Medical Branch POCT URINALYSIS AUTO 2020-12-13 21:50:00 Pilar Mccrary [facility] POCT URINALYSIS AUTO 2020-11-07 16:46:00 Pilar Mccrary [facility] ASSIGNMENT OF BENEFITS 2020-11-07 16:30:48 Doctor Unassigned, No [facility] . [facility] - PAP 2019-07-20 00:00:00 [facility] - Affirm 2019-07-20 00:00:00 [facility] VPIII (BV Panel) <14 WEEKS US 2019-06-17 13:50:14 Nahomy Au [facility] ASSIGNMENT OF BENEFITS 2019-06-14 13:02:03 Doctor Unassigned, No [facility] History of [facility] Section History of Dilation [facility] Encounters Start End Encounter Admission Attending Care Care Encounter Source Date/Time Date/Time Type Type Clinicians Facility Department ID 2022-04-29 2022-04-29 Emergency X [facility] ERT [id number] Univers 20:28:00 21:49:00 NICHOLE ity of [facility] 2022-04-29 2022-04-29 Emergency [facility] [id number] Univers 20:28:00 21:49:00 Nichole PUENTES [id number] i ty of [place] [id number] [facility] [id number] [facility] 084 Branch 2021-09-12 2021-09-12 [facility] [id number] Univers 18:29:00 21:11:00 RAMON ity of [facility] 2021-09-12 2021-09-12 Emergency [facility] [id number] Univers 18:29:00 21:11:00 Ramon PUENTES [id number] ity of [place] [id number] [facility] [phone] [facility] 084 Branch 2021-09-12 2021-09-12 Orders Doctor YOST [id number] Univers 00:00:00 00:00:00 Only Unassigned, CHEKO [id number] [facility] [place] [id number] [place] [id number] [facility] 009 Branch 2021-03-20 2021-03-20 [facility] [id number] Univers 11:00:00 11:00:00 PILAR [facility] [place] 2021-03-14 2021-03-14 Outpatient R HERMANN [facility] [id number] Univers 15:30:00 15:30:00 PILAR landon [facility] 2021-02-24 2021-02-24 Outpatient R BRIAN [facility] [id number] Univers 14:10:00 14:10:00 BULMARO [facility] [place] 2021-02-17 2021-02-17 Outpatient [facility] [id number] Univers 17:40:00 17:40:00 [facility] [place] 2021-02-17 2021-02-17 Outpatient Verona CHILDRESS [facility] [id number] Univers 11:30:00 11:30:00 RONNA [facility] [place] 2021-01-27 2021-01-27 Outpatient [facility] [id number] Univers 16:55:00 16:55:00 [facility] [place] 2021-01-23 2021-01-23 Outpatient [facility] [id number] [facility] 00:00:00 00:00:00 2021-01-09 2021-01-09 Patient Brian [facility] [id number] Univers 00:00:00 00:00:00 Outreach Bulmaro TANIKA [id number] i ty of [facility] [id number] [phone] Id dical [address] 2020-12-13 2020-12-13 [facility] [id number] Univers 15:28:35 15:56:35 Visit Pilar Puentes [id number] ity [facility] [id number] [place] Profess[place] [phone] Id dical nal 204 Branch [facility] 2020-12-13 2020-12-13 Outpatient Verona MCCRARY [facility] [id number] Univers 15:30:00 15:30:00 PILAR landon [facility] 2020-11-09 2020-11-09 Telephone [facility] [id number] Univers 00:00:00 00:00:00 Pilar Gr [place] [id number] ity [id number] [id number] Id dical [facility] 204 [facility] 2020-11-07 2020-11-07 Office [facility] [id number] Univers 10:31:13 11:19:20 Visit Pilar Puentes [id number] [place] [id number] [id number] Id dical [facility] 204 [facility] 2020-11-07 2020-11-07 Outpatient R [facility] [id number] Univers 10:30:00 10:30:00 PILAR itlandon [facility] 2020-11-07 2020-11-07 Orders Doctor YOST [id number] Univers 00:00:00 00:00:00 Only Unassigned, CHEKO [id number] ity of [place] [facility] [id number] Ruddy as [id number] [address] 2019-08-06 2019-08-06 Appointmen NORMA MARSH Multispecia [id number] ID 09:00:00 09:00:00 t; PHUONG MARSH lty - P hysici ABHILASH, M.D. [place] ans M.D. 2019-07-20 2019-07-20 Appointmen NORMA MARSH Multispecia [id number] ID 15:00:00 15:00:00 t; PHUONG MARSH lty - P hysici ABHILASH, M.D. [place] ans M.D. 2019-06-29 2019-06-29 Appointmen NORMA MARSH Multispecia [id number] ID 15:00:00 15:00:00 t; PHUONG MARSH lty - P hysici ABHILASH, M.D. [place] M.D. 2019-06-17 2019-06-17 Routine Trimester, [facility] Res-1st UNIVERSIT [id number] Univers 07:56:20 08:51:32 Nav Reis [facility] [id number] ity of Visit CLINICS [id number] [id number] [place] [address] Branch 2019-06-15 2019-06-15 Telephone SONNY Hart [id number] Univers 00:00:00 00:00:00 [facility] [id number] i ty of CLINICS [id number] [id number] [place] [address] Branch 2019-06-14 2019-06-14 Initial Tanner [facility] [id number] Univers 08:44:56 10:12:33 [facility] [id number] ity of Visit CLINICS [id number] [id number] [place] [address] Branch 2019-06-14 2019-06-14 Orders Doctor PRIYANK [id number] Univers 00:00:00 00:00:00 Only Unassigned, CHEKO [id number] ity of [place] [facility] [id number] Ruddy as [phone] [address] Results Test Description Test Time Test Comments Results Result Comments Source VAGINAL PATHOGENS DNA PANEL 2022-07-10 16:12:23 Test Item Value Reference Range Interpretation Comme nts JOHANNE SPECIES (test code = NEGATIVE NEGATIVE ) G. VAGINALIS (test code = POSITIVE NEGATIVE A ) T. VAGINALIS (test code = NEGATIVE NEGATIVE U NLESS OTHERWISE INDICATED, ALL ) TESTING PERFORM ED ATCLINICAL PATHOLOGY LABOR [facility] [address] [place] [address] LABORATORY DIRE CTOR: ARTI FITZPATRICK M.D. CLIA NUMBER [id number] [place]. [id number] CULTURE, [id number] 06:48:14SPECIMEN NUMBER: [id number] CULTURE, URINE SPECIMEN NUMBER: [id number] SPECIMEN COMMENT: URINE SOURCE:URINE REPORT STATUS: FINAL FINAL REPORT: 05/13/2022 10-50,000 CFU/ML UROGENITAL AVERY PRESENT NO COM MON PATHOGENS UNLESS OTHERWISE INDICATED, ALL TESTING [facility]FORMED [facility] [employer] [address] [place] [id number] STONE SETTER APPRENTICE: ARTI FITZPATRICK M.D. CLIA NUMBER [id number]. [id number] 01:38:00 Test Item Value Reference Range Interpretation Comments POCT PREG (test code = 1605) negative Lab Interpretation (test code = Normal 60576-7) [facility] THINPREP, [id number] 17:30:45 Test Item Value Reference Range Interpretation Comments SOURCE: (test Cervical/Endoc code = 8001) ervical SLIDES: (test 2 code = 8011) LMP: (test code 03/21/2022 = 8021) SPECIMEN (NOTE) Satisfactory f or ADEQUACY: (test evaluation. Endocervical code = 38899) cells/transfor mation zone component not identified. INTERPRETATION: NILM/NO EPITH. (test code = ABNORMALITY;SE 04054) E BELOW ------- NEGATIVE FO R INTRAEPITHELIAL LESION OR MALIGNANCY ( NILM) --------- --------- --------- - OTHER COMMENTS: (NOTE) Shift in shelia ra (test code = suggestive of b acterial 8081) vaginosis. Inte rpreted using an altern ate method of proce ssing. This testwas de veloped and its perform ance characteristics determined byCl [facility] [employer] It has not been cleared orappro adán by the FDA. The la boratory is regulated un karen CLIA asqualified to perform high-complexity testing. This test is us edfor clinical purpos es. It should not be r egarded asinvestigation al or for research. LICENSED MARINE ENGINEER Tawanna : (test code = Junior,CT( 8101) ASCP)IAC QC TECHNOLOGIST: Tom (test code = LidyaSCT( 8111) CP),IAC LOCATION: (test (NOTE) Specimens pr ocessed and code = 42851) interpreted at [facility] [place], [address] [facility] [place] [address], , CLIA: [id number] CPT: (test code (NOTE) 74712 UNLESS OTHERWISE = 8140) INDICATED, COMP UTER AIDED AND CYTOTECHNOLOGIS T SCREENING PERFO RMED. The Pap test is a s creening test with an in herent, but low probabi lity of error. Your pat ient should be remin ded to consult you imm ediately if she experien eva any suspicious sign s or symptoms, regar dless of her Pap test re sult. An alternate repor t format containing imag es or consolidated pr ior Pap history is avai lable as applicable. HPV HIGH RISK WITH GENOTYPE, [id number] 09:35:25 Test Item Value Reference Range Interpretation Comments HPV HIGH RISK INTERP NEGATIVE NEGATIVE (test code = 93658) HPV 16 (test code = NEGATIVE 77294) HPV 18 (test code = NEGATIVE 61845) HPV, HR, OTHER NEGATIVE Testing meth odology is GENOTYPES (test code real-ti me PCR utilizing = 43089) hydrolysis prob es with the Dory Baltazar 4800 system. The melissa t individually de tects genotypes 16 an d 18, as well as the oth er 12 high risk types (31,33,35,39,45 ,51,52,56 ,58,59,66,68). The expected result is negative. A neg ative result does not rule out the presence of HPV not included in the genotype set, a low leve l of infection or sp ecimen sampling error. CULTURE, [id number] 08:30:31SPECIMEN NUMBER: [id number] CULTURE, URINE SPECIMEN NUMBER: [id number] SPECIMEN COMMENT: URINE SOURCE:URINE REPORT STATUS: FINAL FINAL REPORT: 04/05/2022 10-50,000 CFU/ML UROGENITAL AVERY PRESENT NO COM MON PATHOGENSCT/NG, TMA, [id number] 18:16:07 Test Item Value Reference Range Interpretation Comments GONORRHEA, TMA NEGATIVE NEGATIVE Assay method ology is (test code = nucleic acid am plification 53282) by transcriptio n mediated amplification ( TMA) utilizing the A ptima Combo 2 Assay. CHLAMYDIA, TMA NEGATIVE NEGATIVE Assay method ology is (test code = nucleic acid am plification 44907) by transcriptio n mediated amplification ( TMA) utilizing the A ptima Combo 2 Assay. UNLESS OTHERWISE INDICATED, ALL TESTING PERFORMED [facility] [address] [place] [address] DIRECTOR: ARTI FITZPATRICK M.D. [place] NUMBER [id number] CAP ACCREDITATION N O. [id number] VAGINAL PATHOGENS DNA [id number] 14:01:00 Test Item Value Reference Range Interpretation Comments JOHANNE SPECIES (test code = 70370) NEGATIVE NEGATIVE G. VAGINALIS (test code = ) POSITIVE NEGATIVE A T. VAGINALIS (test code = ) NEGATIVE NEGATIVE RPR REFLEX TO T. PALLIDUM - [id number] 05:03:00 Test Item Value Reference Range Interpretation Comments RPR (test code = 17453) NON-REACTIVE NON-REACTIVE RPR TITER (test code = 3500) NOT INDIC. TITER NOT INDIC. HIV 1/2 4TH GEN, RFLX [id number] 04:22:59 Test Item Value Reference Range Interpretation Comments HIV 1/2 4TH GEN, RFLX CONF (test NON-REACTIVE NON-REACTIVE code = 3514) HEPATITIS PANEL, [id number] 04:22:59 Test Item Value Reference Range Interpretation Comments HEPATITIS A TOTAL AB NON-REACTIVE NON-REACTIVE (test code = 2725) HEPATITIS B SURF AG NON-REACTIVE NON-REACTIVE (test code = 2739) HEP B CORE TOTAL AB NON-REACTIVE NON-REACTIVE (test code = 2727) HEPATITIS B SURFACE REACTIVE NON-REACTIVE A AB (test code = 2737) HEPATITIS C ANTIBODY NON-REACTIVE NON-REACTIVE (test code = 4675) INTERPRETATION (NOTE) Hepatitis A HEPATITIS A: (test serology shows no code = 7872) evidence of pas t exposure to orcurrent infec tion with hepatitis A virus; patient not immune tohepati tis A. INTERPRETATION (NOTE) Hepatitis B HEPATITIS B: (test serology consistent code = 26325) with immunity to hepatitis Bfrom previous hepati tis B vaccination. INTERPRETATION (NOTE) Hepatitis C HEPATITIS C: (test serology shows no code = 94185) evidence of ex posure to hepatitisC v irus at this time. I t can take up to 12 m onths after exposure tothe hepatitis C vir us for antibodies to become detectab le in the blood in ce rtain patients. UNLES S OTHERWISE INDIC ATED, ALL TESTING PERFORMED [facility] [place]. [address] [facility] [place] [address] [facility] DIRECTOR: ARTI FITZPATRICK M.D. CLIA NUMBER [id number] [place] [id number] COMP. METABOLIC PANEL (10076)2021-09-13 01:36:01 Test Item Value Reference Range Interpretation Comments NA (test code = 135 mmol/L 135-145 4012641074) K (test code = 3.7 mmol/L 3.5-5.0 6120149732) CL (test code = 103 mmol/L 98-108 9133806979) CO2 TOTAL (test code = 24 mmol/L 23-31 3272526211) AGAP (test code = 2-16 2615341034) BUN (test code = 11 mg/dL 7-23 3438948207) GLUCOSE (test code = 104 mg/dL 70-110 1656762733) CREATININE (test code = 0.48 mg/dL 0.50-1.04 L 9245780591) TOTAL BILI (test code = 1.0 mg/dL 0.1-1.5 3642567903) CALCIUM (test code = 9.5 mg/dL 8.6-10.6 3014225542) T PROTEIN (test code = 7.0 g/dL 6.3-8.2 9653865834) ALBUMIN (test code = 4.3 g/dL 3.5-5.0 2034236587) ALK PHOS (test code = 78 U/L 34-122 7856837676) ALTv (test code = 11 U/L 5-35 1742-6) AST(SGOT) (test code = 18 U/L 13-40 7248828093) eGFR (test code = mL/min/1.73m2 6121299468) IAIN (test code = IAIN) Association of Glomerular Filtration Rate (GFR) and Staging of Kidney Disease* + --+ --+ ------+| GFR (mL/min/1.73 m2) ?| With Kidney Damage ?| ?Without Kidney Damage+ --------+ --------+ +| ?>90 ?| ?Stage one ?| ? Normal ?+ ---+ ---+ -------+| ?60-89 ?| ?Stage two ?| ? Decreased GFR ? + --+ --+ ------+| ?30-59 ?| ?Stage three ?| ? Stage three ? + --+ --+ ------+| ?15-29 ?| ?Stage four ? | ? Stage four ?+ ---+ ---+ -------+| ?<15 (or dialysis) ? ?| ?Stage five ? | ? Stage five ?+ ---+ ---+ -------+ *Each stage assumes the associated GFR level has been in effect for at least three months. ?Stages 1 to 5, with or without kidney disease, indicate chronic kidney disease. Notes: Determination of stages one and two (with eGFR >59mL/min/1.73 m2) requires estimation of kidney damage for at least three months as defined by structural or functional abnormalities of the kidney, manifested by either:Pathological abnormalities or Markers of kidney damage (including abnormalities in the composition of the blood or urine or abnormalities in imaging tests). Lab Interpretation Abnormal (test code = 15019-8) [facility] Test Item Value Reference Range Interpretation Comments LIPASE (test code = 7488076626) 77 U/L 0-220 Lab Interpretation (test code = Normal 45290-3) [facility] WITH [id number] 01:24:39 Test Item Value Reference Range Interpretation Comments WBC (test code = See_Comment [Automated 3436-2) message] The sy stem which generated this result transmitted reference range : 4.30 - 11.10 10*3/?L. The reference range was not used to interpret this result as normal/abnormal . RBC (test code = See_Comment [Automated 789-8) message] The sy stem which generated this result transmitted reference range : 3.93 - 5.25 10*6/?L. The reference range was not used to interpret this result as normal/abnormal . HGB (test code = 13.5 g/dL 11.6-15.0 718-7) HCT (test code = 39.2 % 35.7-45.2 4544-3) MCV (test code = 90.5 fL 80.6-95.5 787-2) MCH (test code = 31.2 pg 25.9-32.8 785-6) MCHC (test code = 34.4 g/dL 31.6-35.1 786-4) RDW-SD (test code = 41.1 fL 39.0-49.9 31390-7) RDW-CV (test code = 12.4 % 12.0-15.5 788-0) PLT (test code = See_Comment [Automated 777-3) message] The sy stem which generated this result transmitted reference range : 166 - 358 10*3/ ?L. The reference r micah was not used to interpret this result as normal/abnormal . MPV (test code = 10.7 fL 9.5-12.9 32696-9) NRBC/100 WBC (test See_Comment [Automat ed code = 7833336249) message] The system which generated this result transmitted reference range : 0.0 - 10.0 /100 WBCs. The refer ence range was not u sed to interpret th is result as normal/abnormal . NRBC x10^3 (test code <0.01 See_Comment [Auto mated = 1861049186) message] The s ystem which generated this result transmitted reference range : 10*3/?L. The reference range was not used to interpret this result as normal/abnormal . GRAN MAT (NEUT) % 73.2 % (test code = 770-8) IMM GRAN % (test code 0.40 % = 9249881522) LYMPH % (test code = 17.6 % 736-9) MONO % (test code = 7.0 % 5905-5) EOS % (test code = 1.4 % 713-8) BASO % (test code = 0.4 % 706-2) GRAN MAT x10^3(ANC) 3.65 10*3/uL 1.88-7.09 (test code = 9872200172) IMM GRAN x10^3 (test <0.03 0.00-0.06 code = 2038332263) LYMPH x10^3 (test code 0.88 10*3/uL 1.32-3.29 L = 731-0) MONO x10^3 (test code 0.35 10*3/uL 0.33-0.92 = 742-7) EOS x10^3 (test code = 0.07 10*3/uL 0.03-0.39 711-2) BASO x10^3 (test code <0.03 0.01-0.07 = 704-7) Lab Interpretation Abnormal (test code = 80976-4) [facility] [id number] 01:17:00 Test Item Value Reference Range Interpretation Comments POCT PREG (test code = 1605) Negative On board controls acceptable with C Yes Line (test code = 3574) POCT PREG LOT # (test code = 3575) POCT PREG TEST DATE (test 11/19/2022 code = 3576) Lab Interpretation (test code = Normal 33065-4) [facility] URINALYSIS, [id number] 21:53:00 Test Item Value Reference Range Interpretation Comments POCT U SP GRAV (test code = 1.030 mg/dl 1.005-1.025 A 3255) POCT PH U (test code = 3254) 7.0 mg/dl 5-8 POCT U LEUK EST (test code = negative Negative - Negative 3263) POCT U NIT (test code = 3262) negative Negative - Negative POCT U PROT (test code = trace Negative - Negative 3259) POCT U GLU (test code = 3256) negative Negative - Negative POCT U KETONE (test code = negative Negative - Negative 3258) POCT U UROBILI (test code = 0.2 mg/dl 0.2-1 0) POCT U BILI (test code = negative Negative - Negative 3261) POCT U BLD (test code = 3257) trace Negative - Negative POCT U COLOR (test code = yellow 3266) POCT U APPEAR (test code = clear 3267) Lab Interpretation (test code Abnormal = 58708-9) [facility] URINALYSIS, [id number] 21:53:00 Test Item Value Reference Range Interpretation Comments POCT U SP GRAV (test code = 1.030 mg/dl 1.005-1.025 A 3255) POCT PH U (test code = 3254) 7.0 mg/dl 5-8 POCT U LEUK EST (test code = negative Negative - Negative 3263) POCT U NIT (test code = 3262) negative Negative - Negative POCT U PROT (test code = trace Negative - Negative 3259) POCT U GLU (test code = 3256) negative Negative - Negative POCT U KETONE (test code = negative Negative - Negative 3258) POCT U UROBILI (test code = 0.2 mg/dl 0.2-1 3260) POCT U BILI (test code = negative Negative - Negative 3261) POCT U BLD (test code = 3257) trace Negative - Negative POCT U COLOR (test code = yellow 3266) POCT U APPEAR (test code = clear 3267) Lab Interpretation (test code Abnormal = 04017-3) [facility] URINALYSIS, [id number] 16:47:00 Test Item Value Reference Range Interpretation Comments POCT U SP GRAV (test code = 1.025 mg/dl 1.005-1.025 3255) POCT PH U (test code = 3254) 7.0 mg/dl 5-8 POCT U LEUK EST (test code = negative Negative - Negative 3263) POCT U NIT (test code = 3262) negative Negative - Negative POCT U PROT (test code = negative Negative - Negative 3259) POCT U GLU (test code = 3256) negative Negative - Negative POCT U KETONE (test code = negative Negative - Negative 3258) POCT U UROBILI (test code = 0.2 mg/dl 0.2-1 3260) POCT U BILI (test code = negative Negative - Negative 3261) POCT U BLD (test code = 3257) trace Negative - Negative POCT U COLOR (test code = yellow 3266) POCT U APPEAR (test code = clear 3267) [facility] URINALYSIS, [id number] 16:47:00 Test Item Value Reference Range Interpretation Comments POCT U SP GRAV (test code = 1.025 mg/dl 1.005-1.025 3255) POCT PH U (test code = 3254) 7.0 mg/dl 5-8 POCT U LEUK EST (test code = negative Negative - Negative 3263) POCT U NIT (test code = 3262) negative Negative - Negative POCT U PROT (test code = negative Negative - Negative 3259) POCT U GLU (test code = 3256) negative Negative - Negative POCT U KETONE (test code = negative Negative - Negative 3258) POCT U UROBILI (test code = 0.2 mg/dl 0.2-1 3260) POCT U BILI (test code = negative Negative - Negative 3261) POCT U BLD (test code = 3257) trace Negative - Negative POCT U COLOR (test code = yellow 3266) POCT U APPEAR (test code = clear 3267) [facility][O] Urine Test (in office)2019-07-20 15:17:00 Test Item Value Reference Range Interpretation Comments Test, Urine; Abnormal positive A (test code = 2106-3) [facility] - [id number] 00:00:00 Test Item Value Reference Range Interpretation Comments PAP REPORT; Abnormal (test ABNORMAL, ASC-US A code = 10844-2) [facility] High [id number] 00:00:00 Test Item Value Reference Range Interpretation Comments HPV High Risk REPORT (test code = Positive HPV High Risk REPORT) [facility] [id number] 00:00:00 Test Item Value Reference Range Interpretation Comments GC REPORT (test code = GC REPORT) Negative Chlamydia REPORT (test code = Negative 75257-4) [facility] - Affirm VPIII (BV Panel)2019-07-20 00:00:00 Test Item Value Reference Range Interpretation Comments Affirm VPIII (BV Panel) REPORT See Comment (test code = Affirm VPIII (BV Panel) REPORT) [facility]"
[2022-09-04 18:48] LABS: Urine Blood 3+ (Negative); Urine Glucose Negative (Negative); Urine Protein Trace (Negative); Urine Specific Gravity >=1.030 (1.005-1.030); Urine pH 5.5 (5.0-7.0)
[2022-09-04 19:43] LABS: Urine Mucus 1+ /HPF (None Seen); Urine RBC >50 /HPF (None Seen)
[2022-09-04 20:58] LABS: Absolute Lymphocytes (CBC) 2.3 K/uL (0.7-4.9); Hematocrit 41.7 % (36.0-45.0); MCV 93.7 fL (80-100); MPV 9.2 fL (7.6-11.3); RBC Red Blood Cell Count 4.45 M/uL (3.86-4.86)
[2022-09-04] MEDS ORDERED: KETOROLAC 30 MG/ML INJ ONE (22:23)
[2022-09-04 22:29] LABS: Bilirubin Total 1.5 mg/dL (0.2-1.0); Potassium 3.2 mmol/L (3.5-5.1); Protein, Total 6.9 g/dL (6.4-8.2)
[2022-09-04 23:16] LABS: Urine Specific Gravity/Preg >1.030 (1.005-1.030)
--- NOTE | 2022-09-05 00:18 | EDPHYS ---
Physician Documentation [facility] Name: Qing Reis Age: 36 yrs Sex: Female : 1985 Arrival Date: 09/04/2022 Time: 18:33 Bed 17 Private MD: J CARLOS Physician Raghav Vera HPI: 09/05 00:18 This 36 yrs old Female presents to ER via Ambulatory with complaints of Pelvic kb Pain, Flank Pain, Pain With Urination. 00:18 The patient presents with pelvic pain, urinary symptoms, dysuria. Onset: The kb symptoms/episode began/occurred yesterday. Modifying factors: The symptoms are alleviated by nothing, the symptoms are aggravated by nothing. Associated signs and symptoms: Pertinent positives: dysuria. Severity of symptoms: At their worst the symptoms were moderate, in the emergency department the symptoms are unchanged. The patient has not experienced similar symptoms in the past. The patient has been recently seen by a physician:. Pt reports intermittent lower abd pain and dysuria since April. States she has been to the dr multiple times and has been diagnosed with UTIs. Reports multiple antibiotics given, but the symptoms always come back. 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 - Social history:: Smoking status: Patient denies any tobacco usage or history of. ROS: 09/05 00:12 Constitutional: Negative for fever, chills, and weight loss. kb Abdomen/GI: Positive for abdominal pain. : Positive for pelvic pain, burning with urination. All other systems are negative. Exam: 00:12 Constitutional: This is a well developed, well nourished patient who is awake, alert, kb and in no acute distress. Head/Face: Normocephalic, atraumatic. ENT: Moist Mucous membranes Cardiovascular: Regular rate and rhythm with a normal S1 and S2. No gallops, murmurs, or rubs. No pulse deficits. Respiratory: Respirations even and unlabored. No increased work of breathing. Talking in full sentences Back: No spinal tenderness. No costovertebral tenderness. Full range of motion. Skin: Warm, dry with normal turgor. Normal color. MS/ Extremity: Pulses equal, no cyanosis. Neurovascular intact. Full, normal range of motion. Neuro: Awake and alert, GCS 15, oriented to person, place, time, and situation. Moves all extremities. Normal gait. Psych: Awake, alert, with orientation to person, place and time. Behavior, mood, and affect are within normal limits. 00:12 Abdomen/GI: Inspection: abdomen appears normal, Bowel sounds: normal, Palpation: soft, in all quadrants, mild abdominal tenderness, in the right lower quadrant and left lower quadrant. Vital Signs: 09/04 18:38 BP 108 / 70; Pulse 76; Resp 17; Temp 98.5; Pulse Ox 100% ; Weight 53.07 kg; Height 5 ll1 ft. 3 in. (160.02 cm); Pain 6/10; 20:42 BP 94 / 54; Pulse 66; Resp 16; Pulse Ox 100% on R/A; tp1 22:17 BP 110 / 67; Pulse 68; Resp 16; Pulse Ox 100% on R/A; tp1 09/05 00:00 BP 121 / 63; Pulse 53; Resp 18; Pulse Ox 99% ; kb3 09/04 18:38 Body Mass Index 20.73 (53.07 kg, 160.02 cm) ll1 MDM: 09/04 18:36 Patient medically screened. kb 09/05 00:12 Data reviewed: vital signs, nurses notes. Data interpreted: Pulse oximetry: on room air kb is 100 %. Interpretation: normal. Counseling: I had a detailed discussion with the patient and/or guardian regarding: the historical points, exam findings, and any diagnostic results supporting the discharge/admit diagnosis, lab results, radiology results, the need for outpatient follow up, a family practitioner, to return to the emergency department if symptoms worsen or persist or if there are any questions or concerns that arise at home. 09/04 18:36 Order name: Urine Microscopic Only; Complete Time: 21:26 kb 09/04 18:42 Order name: CBC with Diff; Complete Time: 21:02 kb 09/04 18:42 Order name: CMP; Complete Time: 22:30 kb 09/04 18:49 Order name: Urine Dipstick-Ancillary; Complete Time: 18:49 EDMS 09/04 21:29 Order name: Urine Culture EDMS 09/04 22:33 Order name: Urine --Ancillary (enter results); Complete Time: 23:29 mw2 09/04 18:36 Order name: Urine Dipstick-Ancillary (obtain specimen); Complete Time: 18:43 kb 09/04 18:36 Order name: Urine Test (obtain specimen); Complete Time: 18:43 kb 09/04 18:42 Order name: CT Abd/Pelvis - IV Contrast Only kb 09/04 18:42 Order name: IV Saline Lock; Complete Time: 20:43 kb 09/04 18:42 Order name: Labs collected and sent; Complete Time: 20:43 kb Administered Medications: 09/04 22:25 Drug: Ketorolac 15 mg Route: IVP; Site: right antecubital; tp1 23:30 Follow up: Response: No adverse reaction; Pain is decreased kb3 09/05 00:28 Drug: Potassium Chloride 40 mEq Route: PO; kb3 00:32 Follow up: Response: No adverse reaction kb3 Disposition: 09:23 Co-signature as Attending Physician, Raghav Vera MD I agree with the assessment and claudio plan of care. Disposition Summary: 09/05/22 00:17 Discharge Ordered Location: Home kb Condition: Stable kb Diagnosis - Lower abdominal pain, unspecified kb - UTI/ Urinary tract infection, site not specified kb Followup: kb - With: Emergency Department - When: As needed - Reason: Worsening of condition Followup: kb - With: Private Physician - When: 2 - 3 days - Reason: Recheck today's complaints, Continuance of care, Re-evaluation by your physician Discharge Instructions: - Discharge Summary Sheet kb - Pelvic Pain, Female, Qfhg-ng-Nisl kb - Urinary Tract Infection, Adult, Xktw-[id number] kb Forms: - Medication Reconciliation Form kb - Thank You Letter kb - Antibiotic Education kb - Prescription Opioid Use kb Prescriptions: - Augmentin 875-125 mg Oral Tablet - take 1 tablet by ORAL route every 12 hours for 10 days; 20 tablet; Refills: 0, kb Product Selection Permitted Signatures: Dispatcher [employer] [facility] Marylin Caal, LISA-C LISA-Raghav Arce MD MD cha Lewis, Lynsay, RN RN ll1 Mita Spencer RN RN tp1 Elisha Swift RN RN kb3 Corrections: (The following items were deleted from the chart) 00:32 00:32 Home Meds: Vitamin Oral; kb3 kb3
--- NOTE | 2022-09-05 00:18 | ER ---
Nurse's Notes [facility] Name: Qing Reis Age: 36 yrs Sex: Female : 1985 Arrival Date: 09/04/2022 Time: 18:33 Bed 17 Private MD: Diagnosis: Lower abdominal pain, unspecified;UTI/ Urinary tract infection, site not specified Presentation: 09/04 18:38 Chief complaint: Patient states: Frequent yeast infections since April. Diagnosed with ll1 UTI after all these yeast infections. Lower pelvic pain with dysuria at times. No fever. Coronavirus screen: Vaccine status: Patient reports being unvaccinated. Client denies travel out of the [place] in the last 14 days. At this time, the client does not indicate any symptoms associated with coronavirus-19. Ebola Screen: Patient denies travel to an Ebola-affected area in the 21 days before illness onset. Initial Sepsis Screen: Does the patient meet any 2 criteria? No. Patient's initial sepsis screen is negative. Does the patient have a suspected source of infection? Yes: Dysuria/Frequency/Urgency/UTI. Risk Assessment: Do you want to hurt yourself or someone else? Patient reports no desire to harm self or others. Onset of symptoms was August 25, 2022. 18:38 Method Of Arrival: Ambulatory ll1 18:38 Acuity: CARLY 3 ll1 Triage Assessment: 18:42 General: Appears uncomfortable, Behavior is cooperative, appropriate for age. Pain: ll1 Complains of pain in pelvis Pain currently is 6 out of 10 on a pain scale. Quality of pain is described as aching. Neuro: No deficits noted. Cardiovascular: No deficits noted. GI: Reports lower abdominal pain, cramping. : Reports burning with urination, pain urgency. 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 - Social history:: Smoking status: Patient denies any tobacco usage or history of. Screenin:42 Abuse screen: Denies threats or abuse. Denies injuries from another. Nutritional tp1 screening: No deficits noted. Tuberculosis screening: No symptoms or risk factors identified. Fall Risk None identified. Assessment: 20:41 General: Appears in no apparent distress. uncomfortable, Behavior is calm, cooperative. tp1 Pain: Complains of pain in suprapubic area, right lower quadrant and left lower quadrant Pain radiates to left low back and right low back Pain currently is 10 out of 10 on a pain scale. Quality of pain is described as sharp, Pain began April Is continuous. Neuro: Level of Consciousness is awake, alert, obeys commands, Oriented to person, place, time, situation. Cardiovascular: Patient's skin is warm and dry. Respiratory: Airway is patent Respiratory effort is even, unlabored. GI: Abdomen is flat, non-distended, Abd is soft Abdomen is tender to palpation in suprapubic area. : Reports burning with urination, pain pain with intercourse. EENT: No signs and/or symptoms were reported regarding the EENT system. Derm: Skin is pink, warm \T\ dry. Musculoskeletal: Circulation, motion, and sensation intact. 22:15 Reassessment: Patient appears in no apparent distress at this time. No changes from tp1 previously documented assessment. Patient and/or family updated on plan of care and expected duration. Pain level reassessed. Patient is alert, oriented x 3, equal unlabored respirations, skin warm/dry/pink. continues to CO 8/10 lower back pain, provider notified. Vital Signs: 18:38 BP 108 / 70; Pulse 76; Resp 17; Temp 98.5; Pulse Ox 100% ; Weight 53.07 kg; Height 5 ll1 ft. 3 in. (160.02 cm); Pain 6/10; 20:42 BP 94 / 54; Pulse 66; Resp 16; Pulse Ox 100% on R/A; tp1 22:17 BP 110 / 67; Pulse 68; Resp 16; Pulse Ox 100% on R/A; tp1 09/05 00:00 BP 121 / 63; Pulse 53; Resp 18; Pulse Ox 99% ; kb3 09/04 18:38 Body Mass Index 20.73 (53.07 kg, 160.02 cm) ll1 ED Course: 09/04 18:33 Patient arrived in ED. as 18:35 Marylin Caal FNP-C is [facility]. kb 18:35 Raghav Vera MD is Attending Physician. kb 18:41 Triage completed. ll1 18:42 Arm band placed on. ll1 18:43 Urine Microscopic Only Sent. ll1 20:08 Lizbeth Mathis, RN is Primary Nurse. aa9 20:40 Inserted saline lock: 20 gauge in right wrist, using aseptic technique. Blood collected.tp1 22:47 CT Abd/Pelvis - IV Contrast Only In Process Unspecified. EDMS 11 00:29 No provider procedures requiring assistance completed. IV discontinued, intact, kb3 bleeding controlled, No redness/swelling at site. Pressure dressing applied. 00:31 Patient has correct armband on for positive identification. kb3 Administered Medications: 09/04 22:25 Drug: Ketorolac 15 mg Route: IVP; Site: right antecubital; tp1 23:30 Follow up: Response: No adverse reaction; Pain is decreased kb3 09/05 00:28 Drug: Potassium Chloride 40 mEq Route: PO; kb3 00:32 Follow up: Response: No adverse reaction kb3 Medication: 00:31 VIS not applicable for this client. kb3 Outcome: 00:17 Discharge ordered by MD. kb 00:29 Discharged to home ambulatory. kb3 00:29 Condition: good 00:29 Discharge instructions given to patient, Instructed on discharge instructions, follow up and referral plans. medication usage, Demonstrated understanding of instructions, follow-up care, medications, Prescriptions given X 1. 00:33 Patient left the ED. kb3 Signatures: Dispatcher [employer] EDIN Marylin Caal FNP-C FNP-Zaria Johns as Siria Crowe, RN RN ll1 Mita Spencer RN RN tp1 Lizbeth Mathis, RN RN aa9 Elisha Swift, RN RN kb3 Corrections: (The following items were deleted from the chart) 09/04 22:17 22:15 Reassessment: Patient appears in no apparent distress at this time. No changes tp1 from previously documented assessment. Patient and/or family updated on plan of care and expected duration. Pain level reassessed. Patient is alert, oriented x 3, equal unlabored respirations, skin warm/dry/pink. tp1 11/17 00:32 00:32 Home Meds: Vitamin Oral; kb3 kb3
[2022-09-05] MEDS ORDERED: POTASSIUM CL SA 10 MEQ TAB PO ONE (00:23)
[2022-09-05 00:58] VITALS: TEMP 98.5
[2022-09-05 01:01] VITALS: BP 121/63; O2SAT 99
--- NOTE | 2022-09-05 11:39 | RAD REPORT ---
EXAM DESCRIPTION: Abdomen Pelvis W Contrast CLINICAL HISTORY: 36-year-old female with lower abdominal pain. COMPARISON: None. TECHNIQUE: CT of the abdomen and pelvis was performed following intravenous administration of contra st. Oral contrast was not administered. Multiplanar reformatted images were provided. This exam was p erformed according to our departmental dose optimization program which includes use of automated expo sure control, adjustment of the mA and/or kV according to patient size and/or use of iterative recons truction technique. FINDINGS: Chest: Evaluation through the lung bases reveals no focal opacity, pleural effusion or pne umothorax. Heart size is within normal limits. No pericardial effusion. Abdomen and pelvis: The liver, gallbladder, pancreas, spleen, bilateral kidneys and bilateral adrenal glands are within normal limits. Four tiny foci of hypoattenuation within the RIGHT lobe liver measu res 3 mm, may reflect hepatic cysts although too small to further characterize, (series 501, images 7 , 15, 20 and 21). Punctate 1 mm focus of calcification within the hilar region of the RIGHT kidney compatible with nono bstructing calculus. The vessels are patent and normal in caliber. No abdominopelvic lymph nodes are noted to be pathologically enlarged by CT measurement criteria. The bowel is within normal limits without abnormal bowel wall thickness or bowel dilation. No free air. No free abdominopelvic fluid collections. The appendix is within normal limits. The uterus and adnexa are within normal limits of a contrast-enhanced CT examination. The osseous structures are within normal limits. IMPRESSION: 1. No specific acute intra-abdominal findings are noted to suggest etiology of the pat ient's abdominal pain. 2. Punctate 1 mm focus of calcification within the hilar region of the RIGHT kidney compatible with nonobstructing calculus. Electronically signed by: Rebeca Jay MD 09/04/2022 11:32 PM [employer] Due to temporary technical issues with the PACS/Fluency reporting system, reports are being signed by the in house radiologists without review as a courtesy to insure prompt reporting. The interpreting radiologist is fully responsible for the content of the report.
== END 2022-09-05 00:33 | disposition home or self-care (01) ==
LOC: ER 18:31
DX: N39.0 Urinary tract infection, site not specified (principal)
CPT/HCPCS: 36415; 74177; 80053; 81003; 81015; 81025; 85025; 87086; 87088; 96374; 99284; Q9967

== ENCOUNTER 2022-10-21 00:40 | Emergency (ER) | payer SELFPAY ==
--- OUTSIDE RECORDS SUMMARY | 2022-10-21 00:56 | XMS REPORT | Continuity of Care Document ---
:1985 Author Organization [facility] t Address [address] [place] [address] Dr. Nolen. [address] [place] [address] Care Team Providers Name Role Phone Pcp, Patient Does Not Have A Primary Care Physician [phone] NICHOLE ALBRECHT Attending Clinician Unavailable Nichole Soni Attending Clinician RAMON DAILEY Attending Clinician Unavailable Ramon Cyr Attending Clinician Doctor Unassigned, [place] Attending Clinician Unavailable PILAR MCCRARY Attending Clinician Unavailable BULMARO TORRES Attending Clinician Unavailable RONNA CHILDRESS Attending Clinician Unavailable Bulmaro Torres DO Attending Clinician Pilar Hernandez Attending Clinician PHUONG MARSH M.D. Attending Clinician Unavailable Melida, [facility] Attending Clinician Unavailable Nav Reis MD Attending Clinician Damaris Gonzales Attending Clinician RAMON DAILEY Admitting Clinician Unavailable Payers Payer Name Policy Type Policy Number Effective Date Expiration Date Charlette BRIDGES II [id number] 2020 00:00:00 Problems Condition Condition Condition Status Onset Resolution Last Treating Co mments Source Name Details Category Date Date Treatment Clinician Date Cervical Cervical Disease Active 2017-10 Overview: Un dao high risk high risk -08 Formattin i ty of human human 00:00: g of this [place] papillomav papillomav 00 note Me dical irus (HPV) irus (HPV) might be Branch DNA test DNA test different positive positive from the original. HPV+, Patient informed to RTC in 1 year for repeat pap smear and cotesting . Vaginal Vaginal Disease Active 2017-10 Univers itching itching 06 ity of 00:00: [place] [facility] Vaginal Vaginal Disease Active 2017-10 Univers discharge discharge 06 ity of 00:00: [place] [facility] Encounter Encounter Disease Active 2016-10 Uni vers for for 0-24 ity of [place]pt [place]pt [place] manfred manfred 00 Medical management management Br anch , , unspecifie unspecifie d type d type Screening Screening Disease Active 2016-10 Uni vers examinatio examinatio 0-24 it y of n for STD n for STD [place] ([place]ually (sexually 00 Medi silvia transmitte transmitte Br anch d disease) d disease) Well woman Well woman Disease Active U nivers exam exam 4-18 ity of 00:00: [place] [facility] Well woman Well woman Disease Active U nivers exam exam 4-18 ity of 00:00: [place] [facility] Depression Depression Disease Active U nivers , , 4-09 ity of unspecifie unspecifie [place] 00 Medical depression depression Br anch type type Allergies, Adverse Reactions, Alerts Allergy Allergy Status Severity Reaction(s) Onset Inactive Treating Comm ents Source Name Type Date Date Clinician ADHESIVE Drug Active Rash Univers Class 5-21 ity of 00:00: [place] 00 [facility] Branch Adhesive Propensi Active Rash Pt Univer s [...] Comments Source ASSERTION 2019-05-25 University of 00:00:00 [place] [facility] [place] History [facility] Alcohol Frequency [place] [facility] edical Branch History [facility] University o f Alcohol Std [place] [facility] Drinks Branch History [facility] o f Alcohol Binge [place] [facility] al Branch Exposure to 2022-04-19 2022-04-29 Not sure University SARS-CoV-2 00:00:00 20:20:00 [facility] (event) Branch Alcohol intake 2022-04-29 2022-04-29 0 /d University of 00:00:00 00:00:00 [facility] Alcohol Comment 2018-03-13 2018-03-13 socially prior to Un iversity of 00:00:00 00:00:00 [facility] Tobacco use and 2014-03-09 2014-03-09 Smokeless tobacco Un iversity of exposure 00:00:00 00:00:00 non-user [facility] Sex Assigned At [birth year] Universit y of 00:00:00 00:00:00 [facility] Smoking Status Start Date Stop Date Source Never smoked tobacco [facility] Medications Ordered Filled Start Stop Current Ordering Indication Dosage Frequency Signature Comments Components Source Medication Medication Date Date Medication? Clinician (SIG) Name Name fluconazole 2021- No 150mg 150 mg, U nivers (DIFLUCAN) 04-30 Oral, ONCE it y of tablet 150 03:45: 02:37 NOW, 1 [place] mg 00 :00 dose, On Medical Mon Branch 04/29/22 at 2245, DONNA
Re ason for Anti-Infec tive: Documented Infection< br>Documen rudy Infection Site: Skin / Soft Tissue
Duration of Therapy: Other (see Comments) fluconazole Yes [id number] Take 1 Univers 150 mg 11 tablet on ity of tablet 00:00: 05/02/[address] NaCl 0.9% 2020-10- No 1000mL at 999 Uni vers (NS) [...] dose, On Branch Fri09/12/21 at 1945, Routine
human resources team member approving Restricted medication : RAMON DAILEY ondansetron 2020-10 Yes [id number] 4mg Take 1 Univers 4 mg 1-24 tablet by ity of disintegrat 00:00: mouth [place] ing tablet 00 every 8 Medica l (eight) Branch hours as needed for Nausea and Vomiting (N/V). ondansetron 2020-10 Yes [id number] 4mg Take 1 Univers 4 mg 1-24 tablet by ity of disintegrat 00:00: mouth [place] ing tablet 00 every 8 Medica l (eight) Branch hours as needed for Nausea and Vomiting (N/V). Nitrofurant 2018- No [id number] 100mg Take 1 Univers oin&Nit. 06-14 capsule by ity of Macrocryst 00:00: 04:59 mouth 2 Ruddy as 100 mg 00 :00 (two) Medical capsule times Branch daily for 7 days. Nitrofurant 2018- No [id number] 100mg Take 1 Univers oin&Nit. 06-14 capsule by ity of Mac[place]ryst 00:00: 04:59 mouth 2 Ruddy as 100 mg 00 :00 (two) Medical capsule times Branch daily for 7 days. Nitrofurant 2018- No [id number] 100mg Take 1 Univers oin&Nit. 06-14 capsule by ity of [place] 00:00: 04:59 mouth 2 Ruddy as 100 mg 00 :00 (two) Medical capsule times Branch daily for 7 days. Nitrofurant 2018- No [id number] 100mg Take 1 Univers oin&Nit. 06-14 capsule by ity of [place] 00:00: 04:59 mouth 2 Ruddy as 100 mg 00 :00 (two) Medical capsule times Branch daily for 7 days. Nitrofurant 2018- No [id number] 100mg Take 1 Univers oin&Nit. 06-14 capsule by ity of [place] 00:00: 04:59 mouth 2 Ruddy as 100 mg 00 :00 (two) Medical capsule times Branch daily for 7 days. metroNIDAZO Yes [id number] 500mg Take 1 Univers LE 500 mg 2-13 tablet by ity o f tablet 00:00: mouth 2 (two) Medical times Branch daily. metroNIDAZO Yes [id number] 500mg Take 1 Univers LE 500 mg 2-13 tablet by ity o f tablet 00:00: mouth 2 (two) Medical times Branch daily. metroNIDAZO Yes [id number] 500mg Take 1 Univers LE 500 mg 2-13 tablet by ity o f tablet 00:00: mouth 2 (two) Medical times Branch daily. metroNIDAZO Yes [id number] 500mg Take 1 Univers LE 500 mg 2-13 tablet by ity o f tablet 00:00: mouth (two) Medical times Branch daily. metroNIDAZO Yes [id number] 500mg Take 1 Univers LE 500 mg 2-13 tablet by ity o f tablet 00:00: mouth (two) Medical times Branch daily. metroNIDAZO Yes [id number] 500mg Take 1 Univers LE 500 mg 2-13 tablet by ity o f tablet 00:00: mouth (two) Medical times Branch daily. metroNIDAZO Yes [id number] 500mg Take 1 Univers LE 500 mg 2-13 tablet by ity o f tablet 00:00: mouth (two) Medical times Branch daily. metroNIDAZO Yes [id number] 500mg Take 1 Univers LE 500 mg 2-13 tablet by ity o f tablet 00:00: mouth 2 (two) Medical times Branch daily. metroNIDAZO Yes [id number] 500mg Take 1 Univers LE 500 mg 2-13 tablet by ity o f tablet 00:00: mouth 2 (two) Medical times Branch daily. metroNIDAZO Yes [id number] 500mg Take 1 Univers LE 500 mg 2-13 tablet by ity o f tablet 00:00: mouth 2 (two) Medical times Branch daily. metroNIDAZO Yes [id number] 500mg Take 1 Univers LE 500 mg 2-13 tablet by ity o f tablet 00:00: mouth 2 00 (two) Medical times Branch daily. metroNIDAZO 2019-0 Yes [id number] 500mg Take 1 Univers LE 500 mg 2-13 tablet by ity o f tablet 00:00: mouth 2 00 (two) Medical times Branch daily. metroNIDAZO 2019-0 Yes [id number] 500mg Take 1 Univers LE 500 mg 2-13 tablet by ity o f tablet 00:00: mouth 2 00 (two) Medical times Branch daily. metroNIDAZO 2019-0 Yes [id number] 500mg Take 1 Univers LE 500 mg 2-13 tablet by ity o f tablet 00:00: mouth 2 00 (two) Medical times Branch daily. metroNIDAZO 2019-0 Yes [id number] 500mg Take 1 Univers LE 500 mg 2-13 tablet by ity o f tablet 00:00: mouth 2 00 (two) Medical times Branch daily. metroNIDAZO 2018- Yes [id number] 500mg Take 1 Univers LE 500 mg 2-13 tablet by ity o f tablet 00:00: mouth 2 (two) Medical times Branch daily. Immunizations Ordered Filled Immunization Date Status Comments [facility] e Immunization Name Name SARS-COV-2 COVID-19 2021-02-24 Completed Unive rsity of PFIZER VACCINE 00:00:00 [facility] SARS-COV-2 COVID-19 2021-02-24 Completed Unive rsity of PFIZER VACCINE 00:00:00 [facility] SARS-COV-2 COVID-19 2021-02-24 Completed Unive rsity of PFIZER VACCINE 00:00:00 [facility] SARS-COV-2 COVID-19 2021-01-27 Completed Unive rsity of PFIZER VACCINE 00:00:00 [facility] SARS-COV-2 COVID-19 2021-01-27 Completed Unive rsity of PFIZER VACCINE 00:00:00 [facility] SARS-COV-2 COVID-19 2021-01-27 Completed Unive rsity of PFIZER VACCINE 00:00:00 [facility] Vital Signs Vital Name Observation Time Observation Value Comments Source Heart rate 2022-04-30 65 /min [facility] 02:00:00 [facility] Respiratory rate 2022-04-30 16 /min [facility] 02:00:00 [facility] Oxygen saturation 2022-04-30 99 /min University of in Arterial blood 02:00:00 [facility] silvia by Pulse oximetry Branch Systolic blood 2022-04-30 99 mm[Hg] University of pressure 01:23:00 [facility] Branch Diastolic blood 2022-04-30 65 mm[Hg] University o f pressure 01:23:00 [facility] Body temperature 2022-04-30 36.83 [place] University of 01:23:00 [facility] Body height 2022-04-30 160 cm University of 01:23:00 [facility] Body weight 2022-04-30 52.617 kg University of 01:23:00 [facility] BMI 2022-04-30 20.55 kg/m2 University of 01:23:00 [facility] Systolic blood 2021-09-13 106 mm[Hg] University of pressure 03:05:00 [facility] Diastolic blood 2021-09-13 61 mm[Hg] University o f pressure 03:05:00 [facility] Heart rate 2021-09-13 63 /min University of 03:05:00 [facility] Respiratory rate 2021-09-13 16 /min University of 03:05:00 [facility] Oxygen saturation 2021-09-13 99 /min [place] of in Arterial blood 03:05:00 [facility] by Pulse oximetry Branch Body temperature 2021-09-13 36.83 [place] University of 00:23:00 [facility] Body height 2021-09-13 160 cm University of 00:23:00 [facility] Body weight 2021-09-13 61.689 kg University of :23:00 [facility] BMI 2021-09-13 24.09 kg/m2 University of 00:23:00 [facility] Systolic blood 2020-12-14 94 mm[Hg] University of pressure 14:44:00 [facility] Diastolic blood 2020-12-14 59 mm[Hg] University o f pressure 14:44:00 [facility] Heart rate 2020-12-14 77 /min University of 14:44:00 [facility] Body temperature 2020-12-14 36.33 [place] University of 14:44:00 [facility] Respiratory rate 2020-12-14 18 /min University of 14:44:00 [facility] Branch Body height 2020-12-14 160 cm University of 14:44:00 [facility] Body weight 2020-12-14 61.871 kg University of 14:44:00 [facility] Branch BMI 2020-12-14 24.16 kg/m2 University of 14:44:00 [facility] Branch Systolic blood 2020-11-07 100 mm[Hg] University of pressure 16:48:00 [facility] Branch Diastolic blood 2020-11-07 59 mm[Hg] University o f pressure 16:48:00 [facility] Branch Heart rate 2020-11-07 64 /min University of 16:48:00 [facility] Branch Body temperature 2020-11-07 36.56 [place] University of 16:48:00 [facility] Branch Respiratory rate 2020-11-07 19 /min University of 16:48:00 [facility] Branch Body height 2020-11-07 160 cm University of 16:48:00 [facility] Body weight 2020-11-07 60.963 kg University of 16:48:00 [facility] BMI 2020-11-07 23.81 kg/m2 University of 16:48:00 [facility] Branch Systolic blood 2019-06-17 110 mm[Hg] University of pressure 13:06:00 [facility] Branch Diastolic blood 2019-06-17 64 mm[Hg] University o f pressure 13:06:00 [facility] Branch Heart rate 2019-06-17 84 /min University of 13:06:00 [facility] Body temperature 2019-06-17 36.78 [place] University of 13:06:00 [facility] Branch Respiratory rate 2019-06-17 18 /min University of 13:06:00 [facility] Branch Body height 2019-06-17 157.5 cm University of 13:06:00 [facility] Branch Body weight 2019-06-17 54.432 kg University of 13:06:00 [facility] Branch BMI 2019-06-17 21.95 kg/m2 University of 13:06:00 [facility] Branch Systolic blood 2019-06-14 102 mm[Hg] University of pressure 13:59:00 [place] [facility] Diastolic blood 2019-06-14 62 mm[Hg] University o f pressure 13:59:00 [place] [facility] Branch Heart rate 2019-06-14 86 /min University of 13:59:00 [facility] Branch Body temperature 2019-06-14 36.89 [place] University of 13:59:00 [place] [facility] Respiratory rate 2019-06-14 17 /min University of 13:59:00 [facility] Body height 2019-06-14 157.5 cm [facility] 13:59:00 [facility] Body weight 2019-06-14 53.57 kg [facility] 13:59:00 [facility] BMI 2019-06-14 21.60 kg/m2 [facility] 13:59:00 [facility] BP Systolic 2019-08-06 90 mm[Hg] Location: LUE; [facility] 09:09:00 Position: Sitting BP Diastolic 2019-08-06 [...] Artery; BP Systolic 2019-06-29 93 mm[Hg] Location: LUE; [facility] 15:30:00 Position: Sitting BP Diastolic 2019-06-29 59 mm[Hg] Location: LUE; [facility] 15:30:00 Position: Sitting Height 2019-06-29 62 [in_us] [facility] 15:30:00 Weight 2019-06-29 121 [lb_av] [facility] 15:30:00 Body Mass Index 2019-06-29 22.13 kg/m2 [facility] Calculated 15:30:00 Temperature 2019-06-29 97.9 [degF] Method: Oral [facility] 15:30:00 Heart Rate 2019-06-29 74 /min Location: L [facility] 15:30:00 Brachial Artery; Procedures Procedure Date / Time Performed Performing Clinician Sourc e URINALYSIS 2022-04-30 01:39:00 Nichole Albrecht [facility] POCT TEST 2022-04-30 01:38:00 Nichole Albrecht [facility] CONSENT/REFUSAL FOR 2022-04-30 01:20:04 Doctor Unassigned, No [facility] DIAGNOSIS AND Name Medical Branch TREATMENT XR ABDOMEN ACUTE 2021-09-13 01:38:58 Ramon Dailey [facility] SERIES [facility] Branch LIPASE 2021-09-13 01:18:00 Ramon Dailey [facility] COMP. METABOLIC PANEL 2021-09-13 01:18:00 Ramon Dailey [facility] ([id number]) [facility] CBC WITH DIFF 2021-09-13 01:18:00 Ramon Dailey [facility] URINALYSIS 2021-09-13 01:18:00 Ramon Dailey [facility] RAPID STREP SCREEN FOR 2021-09-13 01:18:00 Ramon Dailey [facility] GROUP A Medical Branch COVID-19 (ID NOW RAPID 2021-09-13 01:18:00 Ramon Dailey [facility] TESTING) Medical Branch POCT TEST 2021-09-13 01:10:00 Ramon Dailey [facility] NOTICE OF PRIVACY 2021-09-13 00:10:47 Doctor Unassigned, No [facility] PRACTICES Name Medical Branch POCT URINALYSIS AUTO 2020-12-13 21:50:00 Pilar Mccrary [facility] POCT URINALYSIS AUTO 2020-11-07 16:46:00 Pilar Mccrary [facility] ASSIGNMENT OF BENEFITS 2020-11-07 16:30:48 Doctor Unassigned, No [facility] . [facility] - PAP 2019-07-20 00:00:00 [facility] - Affirm 2019-07-20 00:00:00 [facility] VPIII (BV Panel) <14 WEEKS US 2019-06-17 13:50:14 Nahomy Au [facility] ASSIGNMENT OF BENEFITS 2019-06-14 13:02:03 Doctor Unassigned, No [facility] History of [place] [facility] History of Dilation [facility] Encounters Start End Encounter Admission Attending Care Care Encounter Source Date/Time Date/Time Type Type Clinicians Facility Department ID 2022-04-29 2022-04-29 Emergency X [facility] ERT [id number] Univers 20:28:00 21:49:00 NICHOLE ity [facility] 2022-04-29 2022-04-29 Emergency [facility] [id number] Univers 20:28:00 21:49:00 Nichole PUENTES [id number] i ty of [id number] [id number] [place] [id number] [place] 2021-09-12 2021-09-12 Emergency X [facility] ERT [id number] Univers 18:29:00 21:11:00 RAMON ity [facility] 2021-09-12 2021-09-12 Emergency [facility] [id number] Univers 18:29:00 21:11:00 Ramon PUENTES [id number] ity of [id number] [id number] [facility] 084 [place] 2021-09-12 2021-09-12 Orders Doctor YOST [id number] Univers 00:00:00 00:00:00 Only Unassigned, CHEKO [id number] [facility] [id number] [place] as [phone] [address] 2021-03-20 2021-03-20 [facility] [id number] Univers 11:00:00 11:00:00 PILAR landon [facility] 2021-03-14 2021-03-14 [facility] [id number] Univers 15:30:00 15:30:00 PILAR landon [facility] 2021-02-24 2021-02-24 [facility] [id number] Univers 14:10:00 14:10:00 BULMARO [facility] 2021-02-17 2021-02-17 Outpatient [facility] [id number] Univers 17:40:00 17:40:00 [facility] 2021-02-17 2021-02-17 Outpatient Verona CHILDRESS [facility] [id number] Univers 11:30:00 11:30:00 RONNA [facility] 2021-01-27 2021-01-27 Outpatient [facility] [id number] Univers 16:55:00 16:55:00 [facility] 2021-01-23 2021-01-23 Outpatient [facility] [id number] [facility] 00:00:00 00:00:00 2021-01-09 2021-01-09 [facility] [id number] Univers 00:00:00 00:00:00 Outreach Bulmaro [facility] [id number] i ty of [facility] [id number] [id number] Sc dical 388 [place] 2020-12-13 2020-12-13 Office [facility] [id number] Univers 15:28:35 15:56:35 Visit Pilar Puentes [id number] ity [facility] [id number] Professio [phone] Sc dical nal 204 Branch [facility] 2020-12-13 2020-12-13 Outpatient Ver[facility] [id number] Univers 15:30:00 15:30:00 PILAR clark [facility] 2020-11-09 2020-11-09 Telephone [facility] [id number] Univers 00:00:00 00:00:00 Pilar Puentes [id number] ity of [id number] Profess[place] [id number] Sc dical [address] 2020-11-07 2020-11-07 Office [facility] [id number] Univers 10:31:13 11:19:20 Visit Pilar Puentes [id number] ity of [place] [id number] Professio [phone] Sc dic[address] 2020-11-07 2020-11-07 Outpatient [facility] [id number] Univers 10:30:00 10:30:00 PILAR clark [facility] 2020-11-07 2020-11-07 Orders Doctor YOST [id number] Univers 00:00:00 00:00:00 Only Unassigned, CHE[place] [id number] ity of [place] [facility] [id number] [place] as [id number] [address] 2019-08-06 2019-08-06 Appointmen [facility] Multispecia [id number] [place] 09:00:00 09:00:00 t; PHUONG MARSH lty - P hysici ABHILASH, M.D. Sienna ans M.D. 2019-07-20 2019-07-20 Appointmen [facility] Multispecia [id number] [place] 15:00:00 15:00:00 t; PHUONG MARSH lty - P hysici ABHILASH, M.D. [place] ans M.D. 2019-06-29 2019-06-29 [facility] Mult[facility] [id number] [place] 15:00:00 15:00:00 t; PHUONG MARSH lty - P hysici ABHILASH, M.D. [place] ans M.D. 2019-06-17 2019-06-17 Routine Trimester, [facility] Res-1st UNIVERSIT [id number] Univers 07:56:20 08:51:32 Nav Reis [facility] [id number] ity of Visit CLINICS [id number] [id number] [place] [address] Branch 2019-06-15 2019-06-15 Telephone Tanner [facility] [id number] Univers 00:00:00 00:00:00 [facility] [id number] i ty of CLINICS [id number] [id number] [place] [address] Branch 2019-06-14 2019-06-14 Initial Tanner [facility] [id number] Univers 08:44:56 10:12:33 [facility] [id number] ity of Visit CLINICS [id number] [phone] [address] 2019-06-14 2019-06-14 Orders Doctor PRIYANK [id number] Univers 00:00:00 00:00:00 Only Unassigned, CHE[place] [id number] ity of [place] [facility] [id number] [place] [phone] [address] Results Test Description Test Time Test Comments Results Result Comments Source VAGINAL PATHOGENS DNA PANEL 2022-07-10 16:12:23 Test Item Value Reference Range Interpretation Comme nts JOHANNE SPECIES (test code = NEGATIVE NEGATIVE ) G. VAGINALIS (test code = POSITIVE NEGATIVE A ) T. VAGINALIS (test code = NEGATIVE NEGATIVE U NLESS OTHERWISE INDICATED, ALL ) TESTING PERFORM ED ATCLINICAL PATHOLOGY LABOR [facility] [address] [place] [address] LABORATORY DIRE CTOR: ARTI FITZPATRICK M.D. CLIA NUMBER [id number] [place]. [id number] CULTURE, [id number] 06:48:14SPECIMEN NUMBER: [id number] CULTURE, URINE SPECIMEN NUMBER: [id number] SPECIMEN COMMENT: URINE SOURCE:URINE REPORT STATUS: FINAL FINAL REPORT: 05/13/2022 10-50,000 CFU/ML UROGENITAL AVERY PRESENT NO COMM ON PATHOGENS UNLESS OTHERWISE INDICATED, ALL TESTING PERFORMED [facility] [employer] [address] [place] [id number] ACID OPERATOR: ARTI FITZPATRICK M.D. CLIA NUMBER [id number] [place]. [id number] POCT [id number] 01:38:00 Test Item Value Reference Range Interpretation Comments POCT PREG (test code = 1605) negative Lab Interpretation (test code = Normal 27091-4) [place] [facility], THINPREP, [id number] 17:30:45 Test Item Value Reference Range Interpretation Comments SOURCE: (test Cervical/Endoc code = 8001) ervical SLIDES: (test 2 code = 8011) LMP: (test code 03/21/2022 = 8021) SPECIMEN (NOTE) Satisfactory f or ADEQUACY: (test evaluation. Endocervical code = 16876) cells/transfor mation zone component not identified. INTERPRETATION: NILM/NO EPITH. (test code = ABNORMALITY;SE 30336) E BELOW ------- NEGATIVE FO R INTRAEPITHELIAL LESION OR MALIGNANCY ( NILM) --------- --------- --------- - OTHER COMMENTS: (NOTE) Shift in shelia ra (test code = suggestive of b acterial 8081) vaginosis. Inte rpreted using an altern ate method of proce ssing. This testwas de veloped and its perform ance characteristics determined byCl inical Pathology [facility] [employer] It has not been cleared orappro adán by the FDA. The la boratory is regulated un karen CLIA asqualified to perform high-complexity testing. This test is us edfor clinical purpos es. It should not be r egarded asinvestigation al or for research. PASTER SUPERVISOR Tawanna : (test code = Junior,CT( 8101) ASCP)IAC QC TECHNOLOGIST: Tom (test code = Pojacqui,SCT( 8111) CP),IAC LOCATION: (test (NOTE) Specimens pr ocessed and code = 60418) [facility] [address] [place] [address], , CLIA: [id number] CPT: (test code (NOTE) 51400 UNLESS OTHERWISE = 8140) INDICATED, COMP UTER [...] as applicable. HPV HIGH RISK WITH GENOTYPE, [id number] 09:35:25 Test Item Value Reference Range Interpretation Comments HPV HIGH RISK INTERP NEGATIVE NEGATIVE (test code = 55034) HPV 16 (test code = NEGATIVE 70644) HPV 18 (test code = NEGATIVE 73573) HPV, HR, OTHER NEGATIVE Testing meth odology is GENOTYPES (test code real-ti me PCR utilizing = 71523) hydrolysis prob es with the [employer] system. The melissa t individually de tects genotypes 16 an d 18, as well as the oth er 12 high risk types (31,33,35,39,45 ,51,52,56 ,58,59,66,68). The expected result is negative. A neg ative result does not rule out the presence of HPV not included in the genotype set, a low leve l of infection or sp ecimen sampling error. CULTURE, [id number] 08:30:31SPECIMEN NUMBER: [id number] CULTURE, URINE SPECIMEN NUMBER: [id number] SPECIMEN COMMENT: URINE SOURCE:URINE REPORT STATUS: FINAL FINAL REPORT: 04/05/2022 10-50,000 CFU/ML UROGENITAL AVERY PRESENT NO COMM ON PATHOGENSCT/NG, TMA, [id number] 18:16:07 Test Item Value Reference Range Interpretation Comments GONORRHEA, TMA NEGATIVE NEGATIVE Assay method ology is (test code = nucleic acid am plification 02705) by transcriptio n mediated amplification ( TMA) utilizing the A ptima Combo 2 Assay. CHLAMYDIA, TMA NEGATIVE NEGATIVE Assay method ology is (test code = nucleic acid am plification 69846) by transcriptio n mediated amplification ( TMA) utilizing the A ptima Combo 2 Assay. UNLESS OTHERWISE INDICATED, ALL TESTING PERFORMED [facility] [address] [place] [id number] [place] [address] DIRECTOR: ARTI FITZPATRICK M.D. [place] NUMBER [id number] CAP ACCREDITATION N O. [id number] VAGINAL PATHOGENS DNA [id number] 14:01:00 Test Item Value Reference Range Interpretation Comments JOHANNE SPECIES (test code = ) NEGATIVE NEGATIVE G. VAGINALIS (test code = ) POSITIVE NEGATIVE A T. VAGINALIS (test code = ) NEGATIVE NEGATIVE RPR REFLEX TO T. PALLIDUM - [id number] 05:03:00 Test Item Value Reference Range Interpretation Comments RPR (test code = 27462) NON-REACTIVE NON-REACTIVE RPR TITER (test code = 3500) NOT INDIC. TITER NOT INDIC. HIV 1/2 4TH GEN, RFLX [id number] 04:22:59 Test Item Value Reference Range Interpretation Comments HIV 1/2 4TH GEN, RFLX CONF (test NON-REACTIVE NON-REACTIVE code = 3514) HEPATITIS PANEL, [id number] 04:22:59 Test Item Value Reference Range Interpretation Comments HEPATITIS A TOTAL AB NON-REACTIVE NON-REACTIVE (test code = 2725) HEPATITIS B SURF AG NON-REACTIVE NON-REACTIVE (test code = 2739) HEP B CORE TOTAL AB NON-REACTIVE NON-REACTIVE (test code = 2721) HEPATITIS B SURFACE REACTIVE NON-REACTIVE A AB (test code = 2737) HEPATITIS C ANTIBODY NON-REACTIVE NON-REACTIVE (test code = 4675) INTERPRETATION (NOTE) Hepatitis A HEPATITIS A: (test serology shows no code = 2552) evidence of pas t exposure to orcurrent infec tion with hepatitis A virus; patient not immune tohepati tis A. INTERPRETATION (NOTE) Hepatitis B HEPATITIS B: (test serology consistent code = 79999) with immunity to hepatitis Bfrom previous hepati tis B vaccination. INTERPRETATION (NOTE) Hepatitis C HEPATITIS C: (test serology shows no code = 29266) evidence of ex posure to hepatitisC v irus at this time. I t can take up to 12 m onths after exposure tothe hepatitis C vir us for antibodies to become detectab le in the blood in ce rtain patients. UNLES S OTHERWISE INDIC ATED, ALL TESTING PERFORMED [facility] [place] [address] [facility] [place] [address] [facility] DIRECTOR: ARTI FITZPATRICK M.D. CLIA NUMBER [id number] [place]. [id number] COMP. METABOLIC PANEL (79423)2021-09-13 01:36:01 Test Item Value Reference Range Interpretation Comments NA (test code = 135 mmol/L 135-145 5275032742) K (test code = 3.7 mmol/L 3.5-5.0 3296104899) CL (test code = 103 mmol/L 98-108 8748293798) CO2 TOTAL (test code = 24 mmol/L 23-31 7267301158) AGAP (test code = 2-16 9179545976) BUN (test code = 11 mg/dL 7-23 5861388693) GLUCOSE (test code = 104 mg/dL 70-110 3213394898) CREATININE (test code = 0.48 mg/dL 0.50-1.04 L 4388228737) TOTAL BILI (test code = 1.0 mg/dL 0.1-1.2 8392638418) CALCIUM (test code = 9.5 mg/dL 8.6-10.6 7771385629) T PROTEIN (test code = 7.0 g/dL 6.3-8.2 6538429237) ALBUMIN (test code = 4.3 g/dL 3.5-5.0 5405003970) ALK PHOS (test code = 78 U/L 34-122 7367908768) ALTv (test code = 11 U/L 5-35 1742-6) AST(SGOT) (test code = 18 U/L 13-40 8890913517) eGFR (test code = mL/min/1.73m2 6831742762) IAIN (test code = IAIN) Association of [...] tests). Lab Interpretation Abnormal (test code = 31427-2) [facility] Test Item Value Reference Range Interpretation Comments LIPASE (test code = 8585898904) 77 U/L 0-220 Lab Interpretation (test code = Normal 99738-0) [facility] WITH [id number] 01:24:39 Test Item Value Reference Range Interpretation Comments WBC (test code = See_Comment [Automated 1190-2) message] The sy stem which generated this [...] RDW-SD (test code = 41.1 fL 39.0-49.9 06670-8) RDW-CV (test code = 12.4 % 12.0-15.5 788-0) PLT (test code = See_Comment [Automated 777-3) message] The sy stem which generated this result transmitted reference range : 166 - 358 10*3/ ?L. The reference r micah was not used to interpret this result as normal/abnormal . MPV (test code = 10.7 fL 9.5-12.9 68752-2) NRBC/100 WBC (test See_Comment [Automat ed code = 2522430247) message] The system which generated this result transmitted reference range : 0.0 - 10.0 /100 WBCs. The refer ence range was not u sed to interpret th is result as normal/abnormal . NRBC x10^3 (test code <0.01 See_Comment [Auto mated = 1492969231) message] The s ystem which generated this result transmitted reference range : 10*3/?L. The reference range was not used to interpret this result as normal/abnormal . GRAN MAT (NEUT) % 73.2 % (test code = 770-8) IMM GRAN % (test code 0.40 % = 9918892332) LYMPH % (test code = 17.6 % 736-9) MONO % (test code = 7.0 % 5905-5) EOS % (test code = 1.4 % 713-8) BASO % (test code = 0.4 % 706-2) GRAN MAT x10^3(ANC) 3.65 10*3/uL 1.88-7.09 (test code = 6626111716) IMM GRAN x10^3 (test <0.03 0.00-0.06 code = 5097608831) LYMPH x10^3 (test code 0.88 10*3/uL 1.32-3.29 L = 731-0) MONO x10^3 (test code 0.35 10*3/uL 0.33-0.92 = 742-7) EOS x10^3 (test code = 0.07 10*3/uL 0.03-0.39 711-2) BASO x10^3 (test code <0.03 0.01-0.07 = 704-7) Lab Interpretation Abnormal (test code = 90201-2) [facility] [id number] 01:17:00 Test Item Value Reference Range Interpretation Comments POCT PREG (test code = 1605) Negative On board controls acceptable with C Yes Line (test code = 3574) POCT PREG LOT # (test code = 3575) POCT PREG TEST DATE (test 11/19/2022 code = 3576) Lab Interpretation (test code = Normal 10195-2) [facility] URINALYSIS, [id number] 21:53:00 Test Item Value Reference Range Interpretation Comments POCT U SP GRAV (test code = 1.030 mg/dl 1.005-1.025 A 3255) POCT PH U (test code = 3254) 7.0 mg/dl 5-8 POCT U LEUK EST (test code = negative Negative - Negative 3) POCT U NIT (test code = 3262) negative Negative - Negative POCT U PROT (test code = trace Negative - Negative 3259) POCT U GLU (test code = 3256) negative Negative - Negative POCT U KETONE (test code = negative Negative - Negative 8) POCT U UROBILI (test code = 0.2 mg/dl 0.2-1 0) POCT U BILI (test code = negative Negative - Negative 3261) POCT U BLD (test code = 3257) trace Negative - Negative POCT U COLOR (test code = yellow 3266) POCT U APPEAR (test code = clear 3267) Lab Interpretation (test code Abnormal = 24068-4) [facility] URINALYSIS, [id number] 21:53:00 Test Item Value Reference Range Interpretation [...] 3267) Lab Interpretation (test code Abnormal = 07964-5) [facility] URINALYSIS, [id number] 16:47:00 Test Item Value Reference Range Interpretation [...] U APPEAR (test code = clear 3267) [facility], [id number] 16:47:00 Test Item Value Reference Range Interpretation [...] U APPEAR (test code = clear 3267) [facility][O] Urine Test (in office)2019-07-20 15:17:00 Test Item Value Reference Range Interpretation Comments Test, Urine; Abnormal positive A (test code = 2106-3) [facility] - [id number] 00:00:00 Test Item Value Reference Range Interpretation Comments PAP REPORT; Abnormal (test ABNORMAL, ASC-US A code = 77633-2) [facility] [id number] 00:00:00 Test Item Value Reference Range Interpretation Comments HPV High Risk REPORT (test code = Positive HPV High Risk REPORT) [id number] 00:00:00 Test Item Value Reference Range Interpretation Comments GC REPORT (test code = GC REPORT) Negative Chlamydia REPORT (test code = Negative 21364-9) [facility] - Affirm VPIII (BV Panel)2019-07-20 00:00:00 Test Item Value Reference Range Interpretation Comments Affirm VPIII (BV Panel) REPORT See Comment (test code = Affirm VPIII (BV Panel) REPORT) [facility]"
[2022-10-21] MEDS ORDERED: ONDANSETRON 4 MG/2 ML VIAL ONE (02:09)
[2022-10-21] MEDS ORDERED: MORPHINE 2 MG/ML SYR ONE ×2 (02:09→06:16)
[2022-10-21] MEDS ORDERED: NA CHLORIDE 0.9% 1,000 ML ONE (02:10)
[2022-10-21] MEDS ORDERED: FAMOTIDINE 20 MG/2 ML VIAL IV ONE (02:10)
[2022-10-21 02:58] LABS: Absolute Lymphocytes (CBC) 1.1 K/uL (0.7-4.9); Hematocrit 40.4 % (36.0-45.0); Lymphocytes % 8.4 % (15.3-44.8); MPV 8.8 fL (7.6-11.3)
[2022-10-21 03:15] LABS: Albumin 3.7 g/dL (3.4-5.0); Bilirubin Total 0.4 mg/dL (0.2-1.0); Protein, Total 6.8 g/dL (6.4-8.2)
[2022-10-21 03:54] LABS: Urine Blood Trace-intact (Negative); Urine Glucose Negative (Negative); Urine Protein Negative (Negative); Urine Specific Gravity 1.025 (1.005-1.030); Urine pH 5.5 (5.0-7.0)
[2022-10-21 04:14] LABS: Urine Specific Gravity/Preg 1.025 (1.005-1.030)
[2022-10-21 04:22] LABS: Urine Bacteria None Seen /HPF (<20); Urine Mucus Slight /HPF (None Seen); Urine RBC <5 /HPF (None Seen)
--- NOTE | 2022-10-21 05:32 | ER ---
Nurse's Notes [facility] Name: Qing Reis Age: 36 yrs Sex: Female : 1985 Arrival Date: 10/21/2022 Time: 00:51 Bed 16 Private MD: Diagnosis: Vomiting;Diarrhea, unspecified;Abdominal pain, unspecified Presentation: 10/21 01:18 Chief complaint: Patient states: she has chronic stomach pain but tonight she started bb having significant abdominal pain with vomiting and diarrhea. Coronavirus screen: At this time, the client does not indicate any symptoms associated with coronavirus-19. Ebola Screen: No symptoms or risks identified at this time. Initial Sepsis Screen: Does the patient meet any 2 criteria? No. Patient's initial sepsis screen is negative. Does the patient have a suspected source of infection? No. Patient's initial sepsis screen is negative. Risk Assessment: Do you want to hurt yourself or someone else? Patient reports no desire to harm self or others. Onset of symptoms was October 21, 2022. 01:18 Method Of Arrival: EMS bb 01:18 Acuity: CARLY 3 bb Triage Assessment: 02:44 General: Appears in no apparent distress. uncomfortable, ill, slender, Behavior is vc1 calm, cooperative, appropriate for age. 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 - Social history:: Smoking status: Patient denies any tobacco usage or history of. Screenin:[address] [facility] ED Fall Risk Assessment (Adult) History of falling in the last 3 months, vc1 including since admission No falls in past 3 months (0 pts) Confusion or Disorientation No (0 pts) Intoxicated or Sedated No (0 pts) Impaired Gait No (0 pts) Mobility Assist Device Used No (0 pt) Altered Elimination No (0 pt) Score/Fall Risk Level 0 - 2 = Low Risk Maintained a safe environment, Educated pt \T\ family on fall prevention, incl call for assistance when getting out of bed. Abuse screen: Denies threats or abuse. Nutritional screening: No deficits noted. Tuberculosis screening: No symptoms or risk factors identified. Assessment: 02:42 Reassessment: Patient and/or family updated on plan of care and expected duration. Pain vc1 level reassessed. Patient is alert, oriented x 3, equal unlabored respirations, skin warm/dry/pink. Pain: Complains of pain in suprapubic area, right inguinal area and left inguinal area Pain does not radiate. Pain currently is 8 out of 10 on a pain scale. Neuro: Level of Consciousness is awake, alert, obeys commands, Oriented to person, place, time, situation, Appropriate for age. Cardiovascular: No deficits noted. Respiratory: Respiratory effort is even, unlabored, Respiratory pattern is regular, symmetrical. GI: Abdomen is flat, non-distended, Bowel sounds Abd is soft Abdomen is tender to palpation. 04:00 Reassessment: No changes from previously documented assessment. Patient and/or family vc1 updated on plan of care and expected duration. Pain level reassessed. 05:00 Reassessment: No changes from previously documented assessment. Patient and/or family vc1 updated on plan of care and expected duration. Pain level reassessed. 06:00 Reassessment: No changes from previously documented assessment. Patient and/or family vc1 updated on plan of care and expected duration. Pain level reassessed. Vital Signs: 01:18 BP 107 / 73; Pulse 58; Resp 16 S; Temp 98(O); Pulse Ox 99% on R/A; Weight 50.8 kg (R); bb Height 5 ft. 3 in. (160.02 cm) (R); Pain 8/10; 02:30 BP 101 / 64; Pulse 54; Resp 16; Pulse Ox 100% ; vc1 04:00 BP 100 / 56; Pulse 53; Resp 15; Pulse Ox 100% ; vc1 05:00 BP 90 / 53; Pulse 54; Resp 15; Pulse Ox 100% ; vc1 06:29 BP 102 / 58; Pulse 50; Resp 15; Pulse Ox 99% ; vc1 01:18 Body Mass Index 19.84 (50.80 kg, 160.02 cm) ED Course: 00:51 Patient arrived in ED. ja2 01:19 Triage completed. bb 01:19 Arm band placed on Patient placed in an exam room, on a stretcher, on pulse oximetry. bb Family accompanied patient. 01:39 Raghav Vera MD is Attending Physician. claudio 01:50 Caitlin Gonzales, RN is Primary Nurse. vc1 02:09 Abdomen 1 View (KUB) XRAY In Process Unspecified. EDMS 02:39 Inserted saline lock: 20 gauge in left antecubital area, using aseptic technique. Blood vc1 collected. 02:45 Patient has correct armband on for positive identification. Bed in low position. Call vc1 light in reach. Pulse ox on. NIBP on. 06:33 No provider procedures requiring assistance completed. IV discontinued. vc1 Administered Medications: 02:40 Drug: NS 0.9% 1000 ml Route: IV; Rate: 1 bolus; Site: left antecubital; vc1 02:40 Drug: Pepcid (famotidine) 20 mg Route: IVP; Site: left antecubital; vc1 06:27 Follow up: Response: No adverse reaction; Marked relief of symptoms vc1 02:40 Drug: Zofran (Ondansetron) 4 mg Route: IVP; Site: left antecubital; vc1 06:27 Follow up: Response: No adverse reaction vc1 02:40 Drug: morphine 2 mg Route: IVP; Infused Over: 4 mins; Site: left antecubital; vc1 04:00 Follow up: Response: No adverse reaction; Marked relief of symptoms; Pain is decreased vc1 06:21 Drug: morphine 2 mg Route: IVP; Infused Over: 4 mins; Site: right antecubital; vc1 06:27 Follow up: Response: No adverse reaction; Marked relief of symptoms vc1 Medication: 02:45 VIS not applicable for this client. vc1 Outcome: 05:32 Discharge ordered by . [facility] 06:33 Discharged to home ambulatory, with significant other. vc1 06:33 Condition: good 06:33 Discharge instructions given to patient, Instructed on discharge instructions, follow up and referral plans. medication usage, Demonstrated understanding of instructions, follow-up care, medications, Prescriptions given X 3. 06:46 Patient left the ED. vc1 Signatures: Dispatcher [employer] EDMT Raghav Vera MD MD cha Ballard, Brenda, RN RN Nelly Figueroa [place] Mony Lezama Caitlin Gonzales RN RN vc1 Corrections: (The following items were deleted from the chart) 02:40 02:15 Urine collected: clean catch specimen, 4 vc1
--- NOTE | 2022-10-21 05:32 | EDPHYS ---
Physician Documentation [facility] Name: Qing Reis Age: 36 yrs Sex: Female : 1985 Arrival Date: 10/21/2022 Time: 00:51 Bed 16 Private MD: J CARLOS Physician Raghav Vera HPI: 10/21 05:23 This 36 yrs old Female presents to ER via EMS with complaints of Abdominal claudio Pain, Dizziness, Vomiting. 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 - Social history:: Smoking status: Patient denies any tobacco usage or history of. ROS: 05:29 Constitutional: Negative for fever, chills, and weight loss, Eyes: Negative for injury, claudio pain, redness, and discharge, ENT: Negative for injury, pain, and discharge, Neck: Negative for injury, pain, and swelling, Cardiovascular: Negative for chest pain, palpitations, and edema, Respiratory: Negative for shortness of breath, cough, wheezing, and pleuritic chest pain, Back: Negative for injury and pain, : Negative for injury, bleeding, discharge, and swelling, MS/Extremity: Negative for injury and deformity, Skin: Negative for injury, rash, and discoloration, Neuro: Negative for headache, weakness, numbness, tingling, and seizure. 05:29 Abdomen/GI: Positive for abdominal pain, nausea and vomiting, diarrhea. Exam: 05:29 Constitutional: This is a well developed, well nourished patient who is awake, alert, claudio and in no acute distress. Head/Face: Normocephalic, atraumatic. Eyes: Pupils equal round and reactive to light, extra-ocular motions intact. Lids and lashes normal. Conjunctiva and sclera are non-icteric and not injected. Cornea within normal limits. Periorbital areas with no swelling, redness, or edema. ENT: Nares patent. No nasal discharge, no septal abnormalities noted. Tympanic membranes are normal and external auditory canals are clear. Oropharynx with no redness, swelling, or masses, exudates, or evidence of obstruction, uvula midline. Mucous membranes moist. Neck: Trachea midline, no thyromegaly or masses palpated, and no cervical lymphadenopathy. Supple, full range of motion without nuchal rigidity, or vertebral point tenderness. No Meningismus. Chest/axilla: Normal chest wall appearance and motion. Nontender with no deformity. No lesions are appreciated. Cardiovascular: Regular rate and rhythm with a normal S1 and S2. No gallops, murmurs, or rubs. Normal PMI, no JVD. No pulse deficits. Respiratory: Lungs have equal breath sounds bilaterally, clear to auscultation and percussion. No rales, rhonchi or wheezes noted. No increased work of breathing, no retractions or nasal flaring. Back: No spinal tenderness. No costovertebral tenderness. Full range of motion. Pelvic Exam: Normal external genitalia. Speculum exam with closed cervical os, no discharge or bleeding noted. Bimanual exam with normal adnexa, no adnexal or cervical motion tenderness. Normal uterus. Female : Normal external genitalia. Skin: Warm, dry with normal turgor. Normal color with no rashes, no lesions, and no evidence of cellulitis. MS/ Extremity: Pulses equal, no cyanosis. Neurovascular intact. Full, normal range of motion. Neuro: Awake and alert, GCS 15, oriented to person, place, time, and situation. Cranial nerves II-XII grossly intact. Motor strength 5/5 in all extremities. Sensory grossly intact. Cerebellar exam normal. Normal gait. Psych: Awake, alert, with orientation to person, place and time. Behavior, mood, and affect are within normal limits. 05:29 Abdomen/GI: Inspection: abdomen appears normal, Bowel sounds: normal, Palpation: mild abdominal tenderness, in the left upper quadrant and left lower quadrant, Liver: no appreciated palpable abnormalities, Hernia: not appreciated. Vital Signs: 01:18 BP 107 / 73; Pulse 58; Resp 16 S; Temp 98(O); Pulse Ox 99% on R/A; Weight 50.8 kg (R); bb Height 5 ft. 3 in. (160.02 cm) (R); Pain 8/10; 02:30 BP 101 / 64; Pulse 54; Resp 16; Pulse Ox 100% ; vc1 04:00 BP 100 / 56; Pulse 53; Resp 15; Pulse Ox 100% ; vc1 05:00 BP 90 / 53; Pulse 54; Resp 15; Pulse Ox 100% ; vc1 06:29 BP 102 / 58; Pulse 50; Resp 15; Pulse Ox 99% ; vc1 01:18 Body Mass Index 19.84 (50.80 kg, 160.02 cm) bb MDM: 01:39 Patient medically screened. [facility] 05:30 Differential diagnosis: generalized weakness, hypovolemia, near-syncope, . [facility] Data reviewed: vital signs, nurses notes, lab test result(s), radiologic studies. Data interpreted: certified coding specialist: not applicable for this patient encounter. rate is 54 beats/min, rhythm is regular, Pulse oximetry: on room air is 98 %. Test interpretation: by ED physician or midlevel provider:. Counseling: I had a detailed discussion with the patient and/or guardian regarding: the historical points, exam findings, and any diagnostic results supporting the discharge/admit diagnosis, lab results, the need to transfer to another facility, for higher level of care, [facility] does not immediately have the required specialist. 10/21 01:40 Order name: CBC with Diff; Complete Time: 05:05 [facility] 10/21 01:40 Order name: CMP; Complete Time: 05:05 [facility] 10/21 01:40 Order name: Lipase; Complete Time: 05:05 [facility] 10/21 01:40 Order name: Urine Microscopic Only; Complete Time: 05:05 [facility] 10/21 03:54 Order name: Urine Dipstick-Ancillary; Complete Time: 05:05 EDMS 10/21 03:56 Order name: Urine --Ancillary (enter results); Complete Time: 05:06 ds4 10/21 01:40 Order name: IV Saline Lock; Complete Time: 02:40 [facility] 10/21 01:40 Order name: Labs collected and sent; Complete Time: 02:40 [facility] 10/21 01:43 Order name: Abdomen 1 View (KUB) XRAY [facility] 10/21 01:40 Order name: Urine Dipstick-Ancillary (obtain specimen); Complete Time: 03:56 [facility] 10/21 01:40 Order name: Urine Test (obtain specimen); Complete Time: 03:56 [facility] Administered Medications: 02:40 Drug: NS 0.9% 1000 ml Route: IV; Rate: 1 bolus; Site: left antecubital; vc1 02:40 Drug: Pepcid (famotidine) 20 mg Route: IVP; Site: left antecubital; vc1 06:27 Follow up: Response: No adverse reaction; Marked relief of symptoms vc1 02:40 Drug: Zofran (Ondansetron) 4 mg Route: IVP; Site: left antecubital; vc1 06:27 Follow up: Response: No adverse reaction vc1 02:40 Drug: morphine 2 mg Route: IVP; Infused Over: 4 mins; Site: left antecubital; vc1 04:00 Follow up: Response: No adverse reaction; Marked relief of symptoms; Pain is decreased vc1 06:21 Drug: morphine 2 mg Route: IVP; Infused Over: 4 mins; Site: right antecubital; vc1 06:27 Follow up: Response: No adverse reaction; Marked relief of symptoms vc1 Disposition Summary: 10/21/22 05:32 Discharge Ordered Location: Home [facility] Problem: new [facility] Symptoms: have improved claudio Condition: Stable claudio Diagnosis - Vomiting claudio - Diarrhea, unspecified claudio - Abdominal pain, unspecified claudio Followup: claudio - With: Private Physician - When: 2 - 3 days - Reason: Recheck today's complaints, Continuance of care, Re-evaluation by your physician Discharge Instructions: - Discharge Summary Sheet claudio - Abdominal Pain, Adult claudio - Food Choices to Help Relieve Diarrhea, Adult claudio - Diarrhea, Adult claudio - Diarrhea, Adult, [id number] claudio - Vomiting, Adult claudio Forms: - Medication Reconciliation Form [facility] - Thank You Letter [facility] - Antibiotic Education [facility] - Prescription Opioid Use [facility] Prescriptions: - Pepcid 20 mg Oral Tablet - take 1 tablet by ORAL route every 12 hours for 21 days; 42 tablet; Refills: 0, [facility] Product Selection Permitted - Zofran 4 mg Oral Tablet - take 1 tablet by ORAL route every 12 hours As needed; 20 tablet; Refills: 0, [facility] Product Selection Permitted - dicyclomine 20 mg Oral Tablet - take 1 tablet by ORAL route 4 times per day; 28 tablet; Refills: 0, Product [facility] Selection Permitted Signatures: Dispatcher [employer] Raghav Rodarte MD MD cha Ballard, Brenda, RN RN Caitlin Benavidez RN RN vc1
[2022-10-21 07:17] VITALS: TEMP 98
[2022-10-21 07:21] VITALS: BP 102/58; O2SAT 99
--- NOTE | 2022-10-21 13:51 | RAD REPORT ---
EXAM DESCRIPTION: RAD - Abdomen 1 View (KUB) - 10/21/2022 2:07 am CLINICAL HISTORY: The patient is 36 years old and is Female; ABD PAIN TECHNIQUE: Frontal supine view of the abdomen/pelvis. COMPARISON: No relevant prior studies available. FINDINGS: LOWER THORAX: The lung bases are clear. GASTROINTESTINAL TRACT: The bowel gas pattern is nonobstructive. No dilated loops of bowel are s een. There is no significant stool burden. BONES/JOINTS: Unremarkable. SOFT TISSUES: No abnormal calcifications or soft tissue masses are present. IMPRESSION: Nonobstructive, nonspecific bowel gas pattern. Electronically signed by: Aarti Pro MD 10/21/2022 3:04 AM [employer] Due to temporary technical issues with the PACS/Fluency reporting system, reports are being signed by the in house radiologists without review as a courtesy to insure prompt reporting. The interpreting radiologist is fully responsible for the content of the report.
== END 2022-10-21 06:46 | disposition home or self-care (01) ==
LOC: ER 00:40
DX: R10.9 Unspecified abdominal pain (principal); R11.10 Vomiting, unspecified; R19.7 Diarrhea, unspecified
CPT/HCPCS: 36415; 74018; 80053; 81003; 81015; 81025; 83690; 85025; 99284; J2270; J2405; J7030